=== PATIENT | female | born 1985 | race Caucasian/White ===

== ENCOUNTER 2023-06-13 10:03 | Outpatient (OUT) | payer OTHER, SELFPAY ==
--- NOTE | 2023-06-13 10:13 | US_ITS ---
The [address] [address] Patient Name: ANNAMARIE CARDONA MRN: [id number] date: 1985 Sex: F Assigned Patient Location: US Current Patient Location: US Accession/Order Number: [id number] Exam Date: 06/13/2023 10:13 Report Date: 06/13/2023 11:28 At the request of: ABBY CLIFTON Procedure: US pelvis w/ transvaginal EXAM: Pelvic ultrasound. HISTORY: . PELVIC PAIN . COMPARISON: None. TECHNIQUE: Transabdominal and transvaginal scanning was performed FINDINGS: Scanning of the pelvis demonstrates uterus to be anteverted and measures 7.3 x 3.3 x 4.5 cm. Endometrial complex measures 6 mm. Right ovary measures 2.3 x 1.4 x 1.5 cm. Color-flow is noted. Resistive indexes 0.6. Small follicles are noted. Left ovary measures 4.4 x 2 x 4 cm. Color-flow is noted. Resistive indexes 0.7. Within the left ovary is a 2.9 x 2.9 x 2.3 cm avascular complicated cystic lesion. No fluid is noted in the cul-de-sac. US/US pelvis w/ transvaginal IMPRESSION: 1. Normal-appearing uterus and endometrial complex. 2. Normal right ovary. 3. 2.9 x 2.3 cm avascular complicated cystic lesion in the left ovary. Would be most consistent with a hemorrhagic cyst. Less likely would be a inflammatory mass or neoplasm. Clinical correlation is suggested. You may was consider follow-up ultrasound in 8-12 weeks. If this is a hemorrhagic cyst, this should show decrease in size and/or resolution. Electronically authenticated by: FLY SALAMANCA Date: 06/13/2023 11:28
== END 2023-06-13 10:04 | disposition home or self-care (01) ==
PROVIDERS: PCP Family Medicine; Visit Provider Obstetrics & Gynecology
DX: R10.2 Pelvic and perineal pain (principal); N83.202 Unspecified ovarian cyst, left side
CPT/HCPCS: 76830; 76856

== ENCOUNTER 2023-07-22 19:33 | Outpatient (REF) | payer OTHER, SELFPAY ==
[2023-07-28 10:10] LABS: Age Gdln ACOG Testing Note (.); HPV Aptima Negative (Negative); IGP, Aptima HPV, rfx 16/18,45 Note (.)
== END 2023-07-22 19:34 | disposition home or self-care (01) ==
LOC: LAB 19:33
PROVIDERS: PCP Family Medicine; Visit Provider Obstetrics & Gynecology
DX: Z01.419 Encounter for gynecological examination (general) (routine) without abnormal findings (principal)
CPT/HCPCS: 87624; G0145

== ENCOUNTER 2023-08-22 09:57 | Outpatient (OUT) | payer OTHER, SELFPAY ==
--- NOTE | 2023-08-22 | US_ITS ---
The [address] [address] Patient Name: ANNAMARIE CARDONA MRN: [id number] date: 1985 Sex: F Assigned Patient Location: Current Patient Location: US Accession/Order Number: [id number] Exam Date: 08/22/2023 10:00 Report Date: 08/22/2023 12:36 At the request of: ABBY CLIFTON Procedure: US pelvis w/ transvaginal EXAM: Pelvic ultrasound HISTORY: . LEFT OVARIAN CYST N 83.202 . COMPARISON: 06/13/2023 TECHNIQUE: Transabdominal and transvaginal scanning was performed FINDINGS: The pelvis demonstrates uterus to be anteverted and measures 7 x 4 x 3.2 cm. Endometrial complex measures 5 mm. Right ovary measures 1.5 x 2 x 1.4 cm. Color-flow is noted. Resistive indexes 0.5. No masses are noted. Left ovary measures 4.2 x 2.7 x 2.2 cm. Color-flow is noted. Resistive indexes 0.3. Within the left ovary is a 2.5 x 1.5 cm avascular complex cystic area. No fluid is noted in the cul-de-sac. US/US pelvis w/ transvaginal IMPRESSION: 1. Normal-appearing anteverted uterus with a normal endometrial complex. 2. Normal right ovary. 3. Within the left ovary is a 2.5 x 1.5 cm avascular complex cystic structure. When compared to the previous exam the complex cystic lesion is smaller. On the previous exam this measured 2.9 x 2.3 cm. Electronically authenticated by: FLY SALAMANCA Date: 08/22/2023 12:36
== END 2023-08-22 09:58 | disposition home or self-care (01) ==
LOC: US 09:57
PROVIDERS: PCP Family Medicine; Visit Provider Obstetrics & Gynecology
DX: N83.202 Unspecified ovarian cyst, left side (principal)
CPT/HCPCS: 76830; 76856

== ENCOUNTER 2024-07-26 13:06 | Outpatient (REF) | payer OTHER, SELFPAY ==
--- OUTSIDE RECORDS SUMMARY | 2024-07-26 13:20 | XMS_ITS | CCD ---
Author Organization [facility] Care Team Providers Care Mold Dresser Name Role Phone DR ABBY VILLALOBOS Admitting Unavailable ETIENNE, DR MORA Attending Unavailable FATIMAH, DR LIZANDRO Mccloud Primary Care Unavailable ETIENNE, DR MORA Consulting Unavailable Lizandro Harrison Primary Care Unavailable Andrzej Barrera Admitting Unavailable Andrzej Barrera Attending Unavailable Abby Villalobos Referring Unavailable Lizandro Harrison DO Primary Care Provider BEATA FUNES Attending Unavailable LIZANDRO HARRISON Referring Unavailable LIZANDRO HARRISON Primary Care Unavailable BEATA FUNES Referring Unavailable LIZANDRO HARRISON Primary Care Unavailable Medications Current Medications Medication Drug Class(es) Dates Sig (Normalized) Sig (Original) [id number] 200 actuat albuterol 0.09 mg/actuat metered dose inhaler (4 sources) beta2-Adrenergic Agonist Start: 02-15-2024 Albuterol Sulfate Active 1 INH INHALATION Every 6 hours February 15, 2024 12:00am Start: 10-23-2023 albuterol (PRO VENTIL HFA;VENTOLIN HFA) 90 mcg/actuation inhaler Indications: Mild intermittent asthma, unspecified whether complicated Inhale 2 puffs in the morning and 2 puffs at noon and 2 puffs in the evening and 2 puffs before bedtime. As needed. 18 g 1 10/23/2023 Active Start: 07-02-2022 End: 10-23-2023 take 2 puff(s) by inhalation every six hours as needed for wheezing albuterol (PROVENTIL HFA;VENTOLIN HFA) 90 mcg/actuation inhaler Indications: Mild intermittent asthma without complication Inhale 2 puffs every 6 (six) hours as needed for wheezing. 18 g 11 07/02/2022 10/23/2023 Discontinued (Duplicate Listing) End: 10-23-2023 albuterol (PROVENTIL HFA;SHUN TOLIN HFA) 90 mcg/actuation inhaler Inhale 2 puffs in the morning and 2 puffs at noon and 2 puffs in the evening and 2 puffs before bedtime. As needed. 0 10/23/2023 Discontinued (Reorder) amoxicillin 875 mg / clavulanate 125 mg oral tablet (1 source) Penicillin-class Antibacterial Start: 02-15-2024 take 1 tablet by mouth twice daily Amoxicillin-Pot Clavulanate Active 1 TAB PO Twice daily 20 February 15, 2024 12:00am cetirizine hydrochloride 10 mg chewable tablet (1 source) Histamine-1 Receptor Antagonist cetirizine (ZyrTEC) 10 MG chewable tablet Chew 1 tablet (10 mg total) and swallow in the morning. 0 Active ibuprofen 800 mg oral tablet (1 source) Nonsteroidal Anti-inflammatory Drug Start: 05-26-2023 take 1 tablet by mouth every eight hours ibuprofen (MOTRIN) 800 mg tablet Take 1 tablet (800 mg total) by mouth every 8 (eight) hours. 0 05/26/2023 Active meclizine hydrochloride 25 mg oral tablet (1 source) Antiemetic Start: 10-10-2022 take 1 tablet by mouth three times daily as needed for dizziness meclizine (ANTIVERT) 25 mg tablet Take 1 tablet (25 mg total) by mouth 3 (three) times a day as needed for dizziness. 30 tablet 0 10/10/2022 Active omeprazole 20 mg delayed release oral capsule (3 sources) Proton Pump Inhibitor Start: 02-15-2024 take 20 mg by mouth once daily Omeprazole Active 20 MG PO Daily February 15, 2024 12:00am Start: 04-27-2023 End: 10-23-2023 take 1 capsule by mouth once daily before breakfast omeprazole (PriLOSEC) 40 mg capsule Take 1 capsule (40 mg total) by mouth every morning before breakfast. 90 capsule 3 10/23/2023 Active predniSONE 20 mg oral tablet (1 source) Start: 10-23-2023 End: 10-30-2023 take 1 tablet by mouth in the morning predniSONE (DELTASONE) 20 mg tablet Take 1 tablet (20 mg total) by mouth in the morning for 7 days. 7 tablet 0 10/23/2023 10/30/2023 Active sertraline 50 mg oral tablet (3 sources) Serotonin Reuptake Inhibitor Start: 02-15-2024 take 50 mg by mouth once daily Sertraline Active 50 MG PO Daily February 15, 2024 12:00am Start: 09-28-2023 End: 10-23-2023 take 1 tablet by mouth in the morning sertraline (ZOLOFT) 50 mg tablet Take 1 tablet (50 mg total) by mouth in the morning. 30 tablet 11 10/23/2023 Active tiZANidine 4 mg oral tablet (1 source) Central alpha-2 Adrenergic Agonist Start: 10-23-2023 End: 11-02-2023 take 1 tablet by mouth every six hours as needed tiZANidine (ZANAFLEX) 4 mg tablet Take 1 tablet (4 mg total) by mouth every 6 (six) hours as needed for muscle spasms for up to 10 days. 10 tablet 0 10/23/2023 11/02/2023 Active Completed/Discontinued Medications Medication Drug Class(es) Dates Sig (Normalized) Sig (Original) Budesonide (2 sources) Corticosteroid Start: 07-26-2020 End: 01-28-2021 take 180 ug by inhalation twice daily Budesonide (Pulmicort Flexhaler) 180 mcg/actuation aerosol powdr breath activated Discontinued 180 MCG INHALATION Twice daily July 26, 2020 12:00am January 28, 2021 10:34am diphenhydrAMINE hydrochloride 25 mg oral tablet (2 sources) Histamine-1 Receptor Antagonist Start: 07-26-2020 End: 11-01-2020 take 25 mg by mouth once daily at bedtime Diphenhydramine Hcl Discontinued 25 MG PO Daily at bedtime July 26, 2020 12:00am November 01, 2020 9:51am ferrous sulfate 325 mg oral tablet (2 sources) Start: 08-07-2020 End: 08-02-2021 take 1 tablet by mouth once daily Ferrous Sulfate (Iron (Ferrous Sulfate)) 325 mg (65 mg iron) Tablet Discontinued 325 MG PO Daily August 07, 2020 12:00am August 02, 2021 9:35am 3 ml insulin isophane, human 100 unt/ml pen injector (4 sources) Start: 07-26-2020 End: 01-28-2021 Insulin Nph Isoph U-100 Human (Humulin N Nph Insulin Kwikpen) 100 unit/mL (3 mL) insulin pen Discontinued 11 UNIT SUBCUT Every morning July 26, 2020 12:00am January 28, 2021 10:33am Start: 07-26-2020 End: 01-28-2021 inject 7 [IU] by subcutaneous injection once daily at bedtime Insulin Nph Isoph U-100 Human (Humulin N Nph Insulin Kwikpen) 100 unit/mL (3 mL) insulin pen Discontinued 7 UNIT SUBCUT Daily at bedtime July 26, 2020 12:00am January 28, 2021 10:33am insulin, regular, human 100 unt/ml injectable solution (2 sources) Insulin Start: 07-26-2020 End: 01-28-2021 inject 7 [IU] by subcutaneous injection twice daily Insulin Regular Human (Humulin R Regular U-100 Insuln) 100 unit/mL solution Discontinued 7 UNIT SUBCUT Twice daily July 26, 2020 12:00am January 28, 2021 10:33am Magnesium (2 sources) Start: 11-01-2020 End: 01-28-2021 Magnesium Discontinued 420 TAB PO Daily November 01, 2020 1:00am January 28, 2021 10:33am 420 daily for headaches [id number] Fumarate-Fa () 28-800 mg-mcg Tablet (2 sources) Start: 07-26-2020 End: 01-28-2021 take 1 tablet by mouth once daily [id number]-[id number] Fumarate-Fa () 28-800 mg-mcg Tablet Discontinued 1 TAB PO Daily July 26, 2020 12:00am January 28, 2021 10:33am Problems Active Problems Problem Classification Problem Date Documented Date Episodic/Chronic Asthma (3 sources) Mild intermittent asthma; Translations: [Mild intermittent asthma, uncomplicated] Onset: 07-02-2022 10-23-2023 Chronic Deficiency and other anemia (3 sources) Anemia; Translations: [Anemia, unspecified] Onset: 10-23-2023 11-01-2020 Episodic Diseases of white blood cells (5 sources) Leukocytosis; Translations: [Elevated white blood cell count, unspecified] Onset: 11-04-2020 08-02-2021 Chronic Esophageal disorders (1 source) Gastro-esophageal reflux disease with esophagitis; Translations: [Gastroesophageal reflux disease with esophagitis without hemorrhage] 10-23-2023 Chronic Esophageal disorders (1 source) Esophageal disorders; Translations: [Gastro-esophageal reflux disease with esophagitis, without bleeding] Onset: 10-23-2023 Immunizations and screening for infectious disease (1 source) Encounter for screening for human papillomavirus (HPV); Translations: [ENC SCREENING HUMAN PAPILLOMAVIRUS] Onset: 07-12-2022 Episodic Mood disorders (2 sources) Dysthymic disorder; Translations: [Dysthymic disorder] Onset: 08-11-2022 08-11-2022 Chronic Neoplasms of unspecified nature or uncertain behavior (3 sources) Thrombocytosis; Translations: [Thrombocythemia] Onset: 08-02-2021 08-02-2021 Episodic Other acquired deformities (1 source) Acquired unequal leg length; Translations: [Unequal limb length (acquired), unspecified site] 10-23-2023 Episodic Other acquired deformities (1 source) Unequal limb length (acquired), unspecified site; Translations: [Unequal limb length (acquired), unspecified site] Onset: 10-23-2023 Episodic Other nervous system disorders (1 source) Carpal tunnel syndrome; Translations: [Carpal tunnel syndrome, unspecified upper limb] Onset: 07-02-2022 07-02-2022 Chronic Other nutritional; endocrine; and metabolic disorders (1 source) Morbid obesity; Translations: [Morbid (severe) obesity due to excess calories] 10-23-2023 Chronic Other nutritional; endocrine; and metabolic disorders (1 source) Morbid (severe) obesity due to excess calories; Translations: [Morbid (severe) obesity due to excess calories] Onset: 10-23-2023 Chronic Other screening for suspected conditions (not mental disorders or infectious disease) (4 sources) Encounter for screening for malignant neoplasm of cervix; Translations: [ENC SCREENING MALIG NEOPLASM CERV] Onset: 07-10-2022 Episodic Other upper respiratory disease (1 source) Allergic rhinitis; Translations: [Allergic rhinitis, unspecified] Onset: 07-02-2022 07-02-2022 Chronic Other upper respiratory infections (1 source) Acute pharyngitis, unspecified; Translations: [Acute pharyngitis] 02-15-2024 Episodic Ovarian cyst (1 source) Cyst of left ovary; Translations: [Unspecified ovarian cyst, left side] Onset: 08-22-2023 10-23-2023 Episodic Spondylosis; intervertebral disc disorders; other back problems (2 sources) Backache; Translations: [Dorsalgia, unspecified] Onset: 10-23-2023 10-23-2023 Episodic Unclassified (1 source) Other thrombocytosis; Translations: [Other thrombocytosis] Onset: 08-02-2021 Unclassified (1 source) well person Onset: 10-23-2023 Past or Other Problems Problem Classification Problem Date Documented Da te Episodic/Chronic Abdominal pain (1 source) Pain in pelvis; Translations: [Pelvic and perineal pain] Onset: 06-13-2023 10-23-2023 Episodic Conditions associated with dizziness or vertigo (2 sources) Benign paroxysmal positional vertigo; Translations: [Benign paroxysmal vertigo, unspecified ear] Onset: 02-09-2019 07-02-2022 Episodic Deficiency and other anemia (1 source) Iron deficiency anemia; Translations: [Iron deficiency anemia, unspecified] Onset: 11-04-2020 07-02-2022 Episodic Diabetes or abnormal glucose tolerance complicating ; childbirth; or the puerperium (1 source) History of gestational diabetes mellitus; Translations: [Personal history of gestational diabetes] Onset: 07-02-2022 07-02-2022 Episodic Gastritis and duodenitis (1 source) Gastritis; Translations: [Gastritis, unspecified, without bleeding] Onset: 10-12-2005 02-23-2023 Episodic Other disorders of stomach and duodenum (1 source) Intestinal metaplasia of gastric mucosa; Translations: [Intestinal metaplasia of gastric mucosa] Onset: 02-23-2023 02-23-2023 Episodic Superficial injury; contusion (1 source) Foreign body in forearm; Translations: [Superficial foreign body of unspecified forearm, initial encounter] Onset: 07-02-2022 07-02-2022 Episodic Unclassified (1 source) Onset: 10-23-2023 10-23-2023 Results Test Name Value Interpretation Reference Range Facility No Panel InformationOrdered By: Jennie Mars on 02-15-2024 Quick Strep (POC) [facility] COMPREHENSIVE METABOLIC PANE [place] 10-23-2023 Albumin [Mass/Vol] 4.0 g/dL Normal 3.2-5.3 [facility] Comment on above: Performed By: #### C , 75984-6 #### [facility] ([id number]) [address], [address] [place] [address] ALP [Catalytic activity/Vol] 87 U/L Normal 39-130 [facility] Comment on above: Performed By: #### C WILLIE, 12960-0 #### [facility] ([id number]) [address] [place] [address] ALT [Catalytic activity/Vol] 16 U/L Normal 0-31 [facility] Comment on above: Performed By: #### Ana TAPIA, 69477-8 #### [facility] ([id number]) [address], [address] [place] [address] Anion gap [Moles/Vol] 5 mmol/L Normal 5-15 [facility] Comment on above: Performed By: #### Ana TAPIA, 92538-4 #### [facility] ([id number]) [address], [address] [place] [address] AST [Catalytic activity/Vol] 18 U/L Normal 0-41 [facility] Comment on above: Performed By: #### Ana TAPIA, 37779-4 #### [facility] ([id number]) [address], [address] [place] [address] Bilirubin [Mass/Vol] 0.2 mg/dL Low 0.3-1.2 [facility] Comment on above: Performed By: #### Ana TAPIA, 27643-4 #### [facility] ([id number]) [address], [address] [place] [address] Calcium [Mass/Vol] 9.6 mg/dL Normal 8.5-10.5 [facility] Comment on above: Performed By: #### Ana TAPIA, 93336-5 #### [facility] ([id number]) [address], [address] [place] [address] Chloride [Moles/Vol] 100 mmol/L Normal 98-109 [facility] Comment on above: Performed By: #### Ana TAPIA, 59844-1 #### [facility] ([id number]) [address], [address] [place] [address] CO2 [Moles/Vol] 31 mmol/L Normal 22-32 [facility] Comment on above: Performed By: #### Ana TAPIA, 64421-5 #### [facility] ([id number]) [address], [facility] [address] [place] [address] Creatinine [Mass/Vol] 0.63 mg/dL Normal 0.40-1.00 [facility] Comment on above: Result Comment: METH OD TRACEABLE TO IDMS STANDARD Performed By: #### Ana TAPIA, 64822-8 #### [facility] ([id number]) [address], [facility] [address] [place] [address] eGFR (CKD-EPI) NON-RACE DEPENDENT >90 Normal >59 [facility] Comment on above: Result Comment: Reported eGFR is based on the CKD-EPI 2020 equation that does not use a race coefficient. Performed By: #### Ana TAPIA, 86172-6 #### [facility] ([id number]) [address], [address] [place] [address] Glucose [Mass/Vol] 86 mg/dL Normal 65-99 [facility] Comment on above: Performed By: #### Ana TAPIA, 49484-4 #### [facility] ([id number]) [address] [address] [place] [address] Potassium [Moles/Vol] 4.2 mmol/L Normal 3.5-5.0 [facility] Comment on above: Performed By: #### Ana TAPIA, 31957-5 #### [facility] ([id number]) [address] [address] [place] [address] Protein [Mass/Vol] 7.9 g/dL Normal 6.0-8.0 [facility] Comment on above: Performed By: #### Ana TAPIA, 40811-8 #### [facility] ([id number]) [address], [address] [place] [address] Sodium [Moles/Vol] 136 mmol/L Normal 134-146 [facility] Comment on above: Performed By: #### Ana TAPIA, 73332-3 #### [facility] ([id number]) [address], [address] [place] [address] Urea nitrogen [Mass/Vol] 11 mg/dL Normal 5-23 [facility] Comment on above: Performed By: #### Ana TAPIA, 37971-2 #### [facility] ([id number]) [address], [address] [place] [address] Lipid 1996 panelon 4 Cholesterol [Mass/Vol] 247 mg/dL High 150-200 [facility] Comment on above: Performed By: #### Ana TAPIA, 29479-9 #### [facility] ([id number]) [address], [address] [place] [address] Cholesterol in HDL [Mass/Vol] 42 mg/dL Normal >39 [facility] Comment on above: Result Comment: HDL <40 mg/dL - High Risk HDL > or = 40mg/dL- Desirable HDL >60 mg/dL - Negative Risk Performed By: #### Ana TAPIA, 65536-4 #### [facility] ([id number]) [address], [address] [place] [address] Cholesterol in LDL [Mass/Vol] 162 mg/dL High <130 [facility] Comment on above: Result Comment: LDL <100 mg/dL - Desirable LDL >160 mg/dL - High Risk Performed By: #### C WILLIE, 88582-7 #### [facility] ([id number]) [address], [address] [place] [address] Cholesterol in VLDL [Mass/Vol] 43 mg/dL High 0-30 [facility] Comment on above: Performed By: #### Ana TAPIA, 99451-3 #### [facility] ([id number]) [address], [address] [place] [address] CHOLESTEROL:HDL 5.9 High 1.0-5.0 [facility] Comment on above: Performed By: #### Ana TAPIA, 55575-5 #### [facility] ([id number]) [address], [address] [place] [address] Triglyceride [Mass/Vol] 213 mg/dL High 27-150 [facility] Comment on above: Performed By: #### Ana TAPIA, 62998-1 #### [facility] ([id number]) [address], [address] [place] [address] PAP ACOG PANEL 2: 30 to 65on 07-21-2022 . . Normal [facility] Comment on above: Result Comment: Perf ormed at: WB Performed By: #### 4 [id number] #### [facility] [address] [place] [address] Dr. Haider Britt Age Gdln ACOG Testing 30-65 Normal [facility] Comment on above: Performed By: #### 4 [id number] #### [facility] [address] [address] [address] Haider Britt DIAGNOSIS: Comment Abnormal [facility] Comment on above: Result Comment: EPIT HELIAL CELL ABNORMALITY. ATYPICAL SQUAMOUS CELLS OF UNDETERMINED SIGNIFICANCE (ASC-US). Performed at: WB Performed By: #### 4 [id number] #### [facility] [address] [place] [address] Dr. Haider Birtt Electronically signed by: Comment Normal [facility] Comment on above: Result Comment: Ynes Merida MD, Pathologist Performed at: WB Performed By: #### 4 [id number] #### [facility] [address] [place] [address] Dr. Haider Britt HPV Aptima Negative Normal Negative [facility] Comment on above: Result Comment: This nucleic acid amplification test detects fourteen high-risk HPV types (16,18,31,33,35,39,45,51,52,56,58,59,66,68) without differentiation. Performed at: =G Performed By: #### 4 [id number] #### [facility] [address] [place] [address] Dr. Haider Britt Methodology: Comment Normal [facility] Comment on above: Result Comment: This liquid based ThinPrep(R) pap test was screened with the use of an image guided system. Performed at: WB Performed By: #### 4 [id number] #### [facility] [address] [place] [address] Dr. Haider Britt Note: Comment Normal [facility] Comment on above: Result Comment: The Pap smear is a screening test designed to aid in the detection of premalignant and malignant conditions of the uterine cervix. It is not a diagnostic procedure and should not be used as the sole means of detecting cervical cancer. Both false-positive and false-negative reports do occur. . Performed at: WB Performed By: #### [id number] #### [facility] [address] [place] [address] Dr. Haider Britt Pathologist Provided ICD10 Comment Normal [facility] Comment on above: Result Comment: [id number] Performed at: WB Performed By: #### 4 [id number] #### [facility] [address] [place] [address] Dr. Haider Britt Performed by: Comment Normal [facility] Comment on above: Result Comment: Foina Leal, Group Underwriter (ASCP) Performed at: WB Performed By: #### 4 [id number] #### [facility] [address] [place] [address] Dr. Haider Britt Specimen adequacy: Comment Normal [facility] Comment on above: Result Comment: Sati sfactory for evaluation. Endocervical and/or squamous metaplastic cells (endocervical component) are present. Performed at: WB Performed By: #### 4 [id number] #### [facility] [address] [place], [place] [address] Dr. Haider Britt Provider Letteron 08-20-2020 Provider Letter August 20, 2020 ALLYSON CARDONA [address] [place] [address] ALLYSON CARDONA 1985 Dear Allyson , You missed your scheduled appointment on:08-20-2020 and the purpose of this letter is to inform you of our *No Show Policy*. Our appointment slots fill rapidly and when we have a no show appointment that time is lost. We could have used that time slot to care for a patient who needed to see one of our providers. Therefore, we ask that you call 24 hours in advance to cancel your appointment. After your second no show within a twelve (12) month period, you will be assessed a $30 charge. This policy is in place so that we can meet the needs of all of our patients and we do appreciate your understanding. Sincerely, [facility]/Dr Jenny Medeiros [facility] Vital Signs Date Time Vital Sign Value Performing Clinician Facility 02-15-2024 18:07-0400 Body height 152.4 cm [facility] 02-15-2024 18:07-0400 Body mass index (BMI) [Ratio] 41 kg/m2 [facility] 02-15-2024 18:07-0400 Body temperature 98 [degF] [facility] 02-15-2024 18:07-0400 Body weight 95.25 kg [facility] 02-15-2024 18:07-0400 Diastolic blood pressure 96 mm[Hg] [facility] 02-15-2024 18:07-0400 Heart rate 85 /min [facility] 02-15-2024 18:07-0400 Respiratory rate 18 /min [facility] 02-15-2024 18:07-0400 SaO2% (BldA) [Mass fraction] 98 % [facility] 02-15-2024 18:07-0400 Systolic blood pressure 148 mm[Hg] [facility] 10-23-2023 08:35-0500 Body height 147.3 cm Beata Funes APRN-[employer]ENCE [employer]IVER Work Phone: [employer] 10-23-2023 08:35-0500 Body mass index (BMI) [Ratio] 42.85 kg/m2 Beata Funes APRN-[employer]IVER Work Phone: [employer] 10-23-2023 08:35-0500 Body temperature 97.39 [degF] Beata Funes APRN-[employer]IVER [facility] 10-23-2023 08:35-0500 Body weight 92.99 kg Beata Funes APRN-[employer] Work Phone: [employer] 10-23-2023 08:35-0500 Diastolic blood pressure 60 mm[Hg] Beata Funes APRN-[employer]IVER Work Phone: [employer] 10-23-2023 08:35-0500 Heart rate 98 /min Beata Funes APRN-[employer] Work Phone: [employer] 10-23-2023 08:35-0500 Respiratory rate 16 /min Beata Funes APRN-[employer] Work Phone: [employer] 10-23-2023 08:35-0500 SaO2% (BldA) [Mass fraction] 94 % Beata Funes APRN-[employer]IVER Work Phone: [employer] 10-23-2023 08:35-0500 Systolic blood pressure 110 mm[Hg] Beata Funes APRN-[employer] [facility] Phone[facility] En[facility] Encounter Date Encounter Type Care Provider Facility Start: 02-15-2024 End: 02-15-2024 ambulatory [facility] Work Phone: Start: 02-15-2024 End: 02-15-2024 Patient encounter procedure [facility] Work Phone: Start: 10-23-2023 End: 10-24-2023 ambulatory [facility] Start: 10-23-2023 Encounter for genera l adult medical examination without abnormal findings [facility] Start: 10-23-2023 End: 10-23-2023 ambulatory [facility] Start: 10-23-2023 Encounter for genera l adult medical examination without abnormal findings [facility] Start: 10-23-2023 End: 10-23-2023 Patient encounter procedure Beata Funes [employer]UTIONS MANAGER-[employer] Work Phone: [facility] [employer] Work Phone: Start: 10-23-2023 End: 10-23-2023 Periodic preventive med est patient 18-39 yrs Beata Funes SOLUTIONS MANAGER-[employer] Work Phone: [facility] Comment on above: Annual physical exam (Primary Dx); Morbid obesity due to excess calories (CMS-HCC); Mild intermittent asthma, unspecified whether complicated; Gastroesophageal reflux disease with esophagitis without hemorrhage; Acute back pain less than 4 weeks duration; Acquired unequal leg length Start: 07-10-2022 End: 07-10-[address] ABBY VILLALOBOS Facility: Start: 08-02-2021 End: 08-03-2021 ambulatory Lizandro Harrison Facility:[facility] Procedures Date Procedure Procedure Detail Performing Clinician Start: 02-15-2024 Quick Strep (POC) Start: 07-10-2022 Microscopic observat ion [Identifier] in Cervix by Cyto stain Beata Funes SOLUTIONS MANAGER-FENCE POST DRIVER Work Phone: Plan of Treatment Date Care Activity Detail Author Start: 09-10-2030 DTaP,Tdap and Td Vaccines (3 - Td or Tdap) DTaP,Tdap and Td Vaccines (3 - Td or Tdap) [facility] [employer] Start: 07-10-2025 Screening for malign ant neoplasm of cervix Pap Smear [facility] Start: 10-23-2024 Adult BMI Screening Adult BMI Screen ing [facility] Start: 04-23-2024 Tobacco Screening Tobacco Screening [facility] Start: 2005 Adult BMI Follow Up Plan Adult BMI F ollow Up Plan [facility] [employer] Start: 1999 Depression Screening Depression Scre ening [facility] End: 10-23-2024 Comprehensive metabolic 2000 panel - Serum or Plasma Comprehensive metabolic panel Lab Routine Annual physical exam 1 Occurrences starting 10/23/2023 until 10/23/2024 [facility] Work Phone: Comment on above: 1 Occurrences starti ng 10/23/2023 until 10/23/2024 Comprehensive metabo lic 2000 panel - Serum or Plasma Comprehensive metabolic panel Lab Routine Annual physical exam 10/23/2023 7:03 PM EST [facility] [employer] Lipid 1996 panel - S raysa or Plasma Lipid profile Lab Routine Annual physical exam 10/23[facility]2023 7[facility]03 PM [facility] End: 10-23-2024 Lipid panel Lipid panel Lab Routine Annual physical exam 1 Occurrences starting 10/23/2023 until 10/23/2024 [facility] [employer] [facility] Comment on above: 1 Occurrences starti ng 10/23/2023 until 10/23/2024 Immunizations Immunization Date Immunization Notes Care Provider Genaro ayala 09-10-2020 tetanus toxoid, redu aren diphtheria toxoid, and acellular pertussis vaccine, adsorbed Beata Funes SOLUTIONS MANAGER-FENCE POST DRIVER Work Phone: [facility] [employer] [facility] 01-22-2009 tetanus toxoid, redu aren diphtheria toxoid, and acellular pertussis vaccine, adsorbed Beata Funes SOLUTIONS MANAGER-FENCE POST DRIVER Work Phone: [facility] Payers Date Payer Category Payer Private Health Insurance [id number] 2021 Private Health Insurance [id number] 2020 Self-pay [id number] 1987 Unknown [id number] 1987 Unknown [id number] 1987 Unknown [id number] 1959 Private Health Insurance [id number] 1959 Unknown [id number] Unknown [employer] BC/BS [id number] Unknown [id number] Unknown [id number] Social History Date Type Detail [facility] Work Phone: Start: 1985 Sex Assigned At Female F [facility] Start: 08-01-2022 End: 02-15-2024 Tobacco smoking status NHIS Never smoked tobacco [facility] Start: 08-01-2022 Tobacco use and exposure Smoke less tobacco non-user [facility] Start: 10-23-2023 Alcohol intake Current drinke r of alcohol (finding) [facility] Start: 11-22-2020 End: 10-23-2023 History of Social function [facility] Start: 11-22-2020 End: 10-23-2023 Tobacco use panel [facility] Housing Instability Unknown [facility] Start: 11-18-2019 Alcohol Comment rare [facility] Start: 1985 Sex Assigned At Not on file P [facility] History of Present illness Narrative 10-23-2023 Beata Funes, SOLUTIONS MANAGER-FENCE POST DRIVER - 10/23/2023 8:30 AM EST Note Date & Type Note Facility 10-23-2023 History of Present illness Narrative Subjective Patient ID: Allyson Cardona is a 38 y.o. female. Here for her annual exam Last Thursday she lifted a shampoo er and since has some sharp left lower back pain It is deep in the buttock - taking a deep breath or movement aggravate it Staying still helps it - interrupts sleep Her gait has altered it Ibuprofen 800 and heat hasn't helped - muscle relaxer provided some relief for a short time but it didn't last It stays in that spot and goes from sharp to pulsating Doesn't do anything for regular exercise Periods have been ok Mood has been good with her current dose of sertraline Her asthma has been stable, she hasn't used her rescue inhaler in months and uses it rarely The following portions of the patient's history were reviewed and updated as appropriate: allergies, current medications, past family history, past medical history, past social history, past surgical history, problem list, and medication reconciliation was completed including current medication and post discharge medication. Review of Systems Constitutional: Negative. HENT: Negative. Eyes: Negative. Respiratory: Negative. Cardiovascular: Negative. Gastrointestinal: Negative. Endocrine: Negative. Genitourinary: Negative. Musculoskeletal: Positive for back pain and gait problem. Skin: Negative. Allergic/Immunologic: Negative. Hematological: Negative. Psychiatric/Behavioral: Negative. Objective Physical Exam Vitals and nursing note reviewed. Constitutional: Appearance: She is obese. HENT: Head: Normocephalic. Eyes: Conjunctiva/sclera: Conjunctivae normal. Cardiovascular: Rate and Rhythm: Normal rate and regular rhythm. Heart sounds: Normal heart sounds. No murmur heard. Pulmonary: Effort: Pulmonary effort is normal. Breath sounds: Normal breath sounds. Musculoskeletal: General: Tenderness present. Cervical back: Neck supple. Right lower leg: No edema. Left lower leg: No edema. Comments: Limited range of motion at 60 degrees flexion and unable to fully extend She has assymerty when standing erect but this corrects when she flexes Her right hip is higher than her left She has tenderness of the right SI Lymphadenopathy: Cervical: No cervical adenopathy. Skin: General: Skin is warm and dry. Neurological: Mental Status: She is alert and oriented to person, place, and time. Psychiatric: Mood and Affect: Mood normal. Behavior: Behavior normal. Thought Content: Thought content normal. Judgment: Judgment normal. Assessment/Plan Allyson was seen today for well person. Diagnoses and all orders for this visit: Annual physical exam - Comprehensive metabolic panel; Future - Lipid panel; Future Morbid obesity due to excess calories ([facility]-HCC) Mild intermittent asthma, unspecified whether complicated - albuterol (PROVENTIL HFA;VENTOLIN HFA) 90 mcg/actuation inhaler; Inhale 2 puffs in the morning and 2 puffs at noon and 2 puffs in the evening and 2 puffs before bedtime. As needed. Gastroesophageal reflux disease with esophagitis without hemorrhage Acute back pain less than 4 weeks duration Acquired unequal leg length - Ambulatory referral to Podiatry ([facility]); Future Other orders - sertraline (ZOLOFT) 50 mg tablet; Take 1 tablet (50 mg total) by mouth in the morning. - omeprazole (PriLOSEC) 40 mg capsule; Take 1 capsule (40 mg total) by mouth every morning before breakfast. - predniSONE (DELTASONE) 20 mg tablet; Take 1 tablet (20 mg total) by mouth in the morning for 7 days. - tiZANidine (ZANAFLEX) 4 mg tablet; Take 1 tablet (4 mg total) by mouth every 6 (six) hours as needed for muscle spasms for up to 10 days. Here for her annual exam She is doing well on her zoloft and no changes made with that She is currently having some acute back pain but she also has some chronic back issues, looking at her back it appears she has unequal leg length and this may be why she has repeated back issues, will try to get her a foot ligt and see if this is helpful and in the meantime treat her acute pain She has chronic gerd and this is controlled with omeprazole Her asthma also is well controlled with rare use of rescue inhaler Await screening labs, these are not fasting Patient noted to have elevated BMI and the following intervention(s) were applied: encouragement to exercise. PRADEEP Merritt 10/23/23 1201 documented in this encounter [facility] Evaluation note Note Date & Type Note Facility Evaluation note No assessment information availa [facility] Work Phone: Evaluation note Note Date & Type Note Facility Evaluation note Diagnosis Annual physical exam- Primary Routine general medical examination at a health care facility Morbid obesity due to excess calories ([facility]-HCC) Mild intermittent asthma, unspecified whether complicated Gastroesophageal reflux disease with esophagitis without hemorrhage Acute back pain less than 4 weeks duration Acquired unequal leg length Unequal leg length (acquired) documented in this encounter [facility] Evaluation note Note Date & Type Note Facility Evaluation note Diagnosis Onset Date Sore throat noneactive [facility] Work Phone: Instructions Note Date & Type Note Facility Instructions Not on filedocumented in this en counter [facility] Reason for referral (narrative) Consultation (Routine) - Pending Review Note Date & Type Note Facility Reason for referral (narrati ve) Specialty Diagnoses / Procedures Referred By Contmary t Referred To Contact Podiatry Diagnoses Acquired unequal leg length Beata Funes APRN-FNP [address] [place] [address] Chin Bryant, DPM [address] [place] [address] Referral ID Status Reason Start Date Expiration Date Visits Requested Visits Authorized [id number] Pending Review Specialty Services Required 10/23/2023 10/22/2024 1 1 [facility] [employer] Summary Purpose Family History Relationship Condition Age at Onset Recorded Date/T lilliana grandparent Diabetes mellitus Unknown grandparent Malignant neoplasm of bone Unknown grandparent Hodgkin lymphoma Unknown grandparent Psoriasis Unknown Advance Directives Advance Directive Response Recorded Date/ Time Advance Directives No July 23, 2020 3:33pm Chief Complaint and Reason for Visit Chief Complaint sinus pressure, sore throat, headache Reason for Visit Sore throat Additional Source Comments INFORMATION SOURCE (unrecogn ized section and content) DATE CREATED AUTHOR [facility]21/2020 [facility] DATE CREATED AUTHOR AUTHOR'S ORGANIZ ATION 07/21/2022 [facility] DATE CREATED AUTHOR AUTHOR'S ORGANIZ ATION 06/13/2023 [facility] DATE CREATED AUTHOR AUTHOR'S ORGANIZ ATION 10/25/2023 [facility] DATE CREATED AUTHOR AUTHOR'S ORGANIZ ATION 10/25/2023 [facility] Goals (unrecognized section and content) Goals may be documented in a n alternate sectionNot on filedocumented as of this encounterGoals may be documented in an alternate section Reason for Visit (unrecogniz ed section and content) Reason Comments well person Care Teams (unrecognized sec tion and content) Mold Dresser Relationship Specialty Start Date End Date Lizandro Harrison DO [address] [place] [address] PCP - General Family Medicine 02/10/17 Team Status: Active Member Role Status Dates Lizandro Harrison DO Primary Care Provider Active Team Status: Inactive Member Role Status Dates Lizandro Harrison DO Primary Care Provider Active Start: February 15, 2024 End: February 15, 2024 Jennie Mars APRN Attending Provider Active S tart: February 15, 2024 End: February 15, 2024 FOR RECORDS PERTAINING TO PATIENTS WHO ARE OR HAVE BEEN ENROLLED IN A CHEMICAL DEPENDENCY/SUBSTANCEABUSE PROGRAM, SOME INFORMATION MAY BE OMITTED. This clinical summary was aggregated from multiple sources. Caution should be exercised in using it in the provision of clinical care. This summary normalizes information from multiple sources, and as a consequence, information in this document may materially change the coding, format and clinical context of patient data. In addition, data may be omitted in some cases. CLINICAL DECISIONS SHOULD BE BASED ON THE PRIMARY CLINICAL RECORDS. [facility]. provides no warranty or guarantee of the accuracy or completeness of information in this document.
[2024-07-29 12:10] LABS: Age Gdln ACOG Testing Note (.); HPV Aptima Negative (Negative); IGP, Aptima HPV, rfx 16/18,45 Note (.)
== END 2024-07-26 13:07 | disposition home or self-care (01) ==
LOC: LAB 13:06
PROVIDERS: PCP Family Medicine; Visit Provider Obstetrics & Gynecology
DX: Z01.419 Encounter for gynecological examination (general) (routine) without abnormal findings (principal)
CPT/HCPCS: 87624; 88175

== ENCOUNTER 2025-07-31 12:56 | Outpatient (REF) | payer OTHER, SELFPAY ==
--- OUTSIDE RECORDS SUMMARY | 2025-07-31 09:00 | XMS_ITS | Encounter Summary ---
Author Organization [facility] Address [address] [place] [address] Care Team Providers Care Machinery Repair Maintenance Supervisor Name Role Phone Lizandro Harrison MD Primary Care Provider [phone] Reason for Visit * Reason Comments Well Women Visit Encounter Details Date Type Department Care Team ([facility] Contact Info) Description 07/31/2025 9:00 AM EDT Office Visit [facility] [address] [place] [address] Graham Villalobos DO [address] [place], [id number] Well woman exam with routine gynecological exam; Weight loss counseling, encounter for; Insulin resistance Social History Tobacco Use Types Packs/Day Years Used Date Smoking Tobacco: Never Smokeless Tobacco: Never Alcohol Use Standard Drinks/Week Comments Not Currently 1 (1 standard drink = 0.6 oz pur e alcohol) Comments Unknown Sex and Gender Information Value Date Recorded Sex Assigned at Not on file Legal Sex Female 11:06 PM EDT Gender Identity Not on file Sexual Orientation Not on file documented as of this encounter Last Filed Vital Signs Vital Sign Reading Time Taken Comments Blood Pressure 120/82 07/31/2025 8:59 AM EDT Pulse - - Temperature - - Respiratory Rate - - Oxygen Saturation - - Inhaled Oxygen Concentration - - Weight 93 kg (205 lb 1.9 oz) 07/31/2025 8:59 AM EDT Height - - Body Mass Index 42.87 12/09/2023 9:02 AM EST documented in this encounter Progress Notes * Tracy Ang LPN - 07/31/2025 9:00 AM EDT Reason for Appointment: Patient ID: Iveth Lanier is a 40 y.o. female who presents for Well Women Visit Patient presents today for Annual Exam. MEDICATIONS Current Outpatient Medications Medication Instructions albuterol HFA 90 mcg/act inhaler 2 puffs, Every 6 hours PRN cetirizine (ZYRTEC) 10 mg, Daily RT ibuprofen 800 mg, Every 8 hours meclizine (ANTIVERT) 25 mg, 3 times daily PRN metFORMIN XR (GLUCOPHAGE-XR) 500 mg, Oral, Daily with evening meal, Do not crush, chew, or split. 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 HISTORY PAST MEDICAL HISTORY SOCIAL HISTORY Past Medical History: Diagnosis Date Asthma during (HCC) Headache 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 termite control representative use of steroids Social History Tobacco Use Smoking status: Never Smokeless tobacco: Never Substance Use Topics Alcohol use: Not Currently Alcohol/week: 1.0 standard drink of alcohol Types: 1 Glasses of wine per week Drug use: Never FAMILY HISTORY Family History Problem Relation Name Age of Onset Asthma Father Wyatt Diabetes Maternal Grandmother Nataliia Diabetes Paternal Grandmother Pat SURGICAL HISTORY Past Surgical History: Procedure Laterality Date APPENDECTOMY BOTOX INJECTION CARPAL TUNNEL RELEASE Bilateral SECTION, LOW TRANSVERSE EGD 04/2023 PAP SMEAR 06/18/2021 normal REVIEW OF SYSTEMS Review of Systems: Review of Systems Constitutional: Negative. HENT: Negative. Eyes: Negative. Respiratory: Negative. Cardiovascular: Negative. Gastrointestinal: Negative. Genitourinary: Negative. Musculoskeletal: Negative. Skin: Negative. Neurological: Negative. All other systems reviewed and are negative. Hematological: Negative. Endocrine: Negative. Allergic/Immunologic: Negative. OBJECTIVE Objective: Physical Exam Constitutional: Appearance: Normal appearance. She is well-developed. Genitourinary: Vulva normal. Breasts: Breasts are soft. Right: Normal. Left: Normal. Cardiovascular: Rate and Rhythm: Normal rate and regular rhythm. Pulmonary: Effort: Pulmonary effort is normal. Breath sounds: Normal breath sounds. Abdominal: General: Bowel sounds are normal. There is no distension. Palpations: Abdomen is soft. Tenderness: There is no abdominal tenderness. There is no guarding or rebound. Musculoskeletal: General: No swelling. Normal range of motion. Right lower leg: No edema. Left lower leg: No edema. Neurological: Mental Status: She is alert and oriented to person, place, and time. Skin: General: Skin is warm and dry. Psychiatric: Mood and Affect: Mood normal. Behavior: Behavior normal. Vitals and nursing note reviewed. Exam conducted with a casting assistant present. Vitals: Estimated body mass index is 42.87 kg/m?? as calculated from the following: Height as of 12/09/23: 4' 10 . Weight as of this encounter: 205 lb 1.9 oz. BP: 120/82 Patient's last menstrual period was 07/21/2025. Assessment/Plan ICD-10-CM 1. Well woman exam with routine gynecological exam Z01.419 Pap Smear HPV DNA probe, amplified 2. Weight loss counseling, encounter for Z71.3 metFORMIN XR (Glucophage-XR) 500 MG 24 hr tablet 3. Insulin resistance E88.819 metFORMIN XR (Glucophage-XR) 500 MG 24 hr tablet Annual Exam: Patient presents today for an annual exam. Patient states she is doing well and has no complaints. Pap was obtained without difficulty. Discussed weaning off Zoloft and patient will reach out to office if she needs refills sent and if she desires to continue medication. Orders Placed This Encounter Procedures HPV DNA probe, amplified Follow Up: Patient is to return in one year for annual unless needed otherwise. Documented by Tracy Ang LPN on behalf of: Graham Villalobos DO documented in this encounter Plan of Treatment Upcoming Encounters Date Type Department Care Team (Late st Contact Info) Description 08/07/2026 10:00 AM EDT Procedure Visit [facility] [address] [place] [address] Graham Villalobos, DO [address] [place] [address] Scheduled Orders Name Type Priority Associated Diagnoses Orde r Schedule Pap Smear Pathology and Cytology Routine Well woman exam with routine gynecological exam Ordered: 07/31/2025 HPV DNA probe, amplified Microbiology Routine Well woman exam with routine gynecological exam Ordered: 07/31/2025 documented as of this encounter Procedures Procedure Name Priority Date/Time Associated Diagnosis Comments PAP TEST, EXTERNAL Routine 07/26/2024 12:00 AM EDT documented in this encounter Results * PAP TEST, EXTERNAL (07/26/2024 12:00 AM EDT) Griselda [facility] CYTOLOGY ORDERABLES Final Result EXTERNAL LAB documented in this encounter Visit Diagnoses Diagnosis Well woman exam with routine gynecological exam Routine gynecological examination Weight loss counseling, encounter for Insulin resistance Other abnormal glucose documented in this encounter Care Teams Machinery Repair Maintenance Supervisor Relationship Specialty Start Date End Date Lizandro Harrison MD PCP - General 05/29/23 documented as of this encounter
--- OUTSIDE RECORDS SUMMARY | 2025-07-31 13:00 | XMS_ITS | Encounter Summary ---
Author Organization [employer] Address [id number] [address] [place] [address] Care Team Providers Care Institutional Custodian Name Role Phone Lizandro Harrison DO Primary Care Provider + [phone] Reason for Visit * Reason Onset Date Comments Med Refill 09/08/2022 Encounter Details Date Type Department Care Team (Late st Contact Info) Description 09/08/2022 Refill [facility] - Family Medicine [address] [place] [address] Zeynep Alcocer CMA Social History Tobacco Use Types Packs/Day Years Used Date Smoking Tobacco: Never Smokeless Tobacco: Never Alcohol Use Standard Drinks/Week Comments Yes 0 (1 standard drink = 0.6 oz pur e alcohol) rare Childcare Answer Date Recorded Childcare Unknown 03/23/2019 Employment Answer Date Recorded Employment Unknown 03/23/2019 Purpose - Life Answer Date Recorded Purpose and direction in life Unknown Comments No Sex and Gender Information Value Date Recorded Sex Assigned at Not on file Legal Sex Female 11:34 AM EDT Gender Identity Not on file Sexual Orientation Not on file documented as of this encounter Plan of Treatment Not on file documented as of this encounter Visit Diagnoses Not on filedocumented in this encounter Care Teams Institutional Custodian Relationship Specialty Start Date End Date Lizandro Harrison DO [address], [facility] [place] [address] PCP - General Family Medicine 02/10/17 documented as of this encounter
--- OUTSIDE RECORDS SUMMARY | 2025-07-31 13:01 | XMS_ITS | Encounter Summary ---
Author Organization [employer] Address [id number] [address] [place] [address] Care Team Providers Care Ceramic Tile Installer Name Role Phone Lizandro Harrison Primary Care Provider + [phone] Reason for Visit * Reason Comments Med Refill Encounter Details Date Type Department Care Team (Late st Contact Info) Description 03/01/2023 Refill [facility] - Family Medicine [address] [place] [id number] Beata Funes, AUTOMOTIVE EXHAUST EMISSIONS TECHNICIAN-MANAGER STRATEGIC DEVELOPMENT [address] [place] [address] Social History Tobacco Use Types Packs/Day Years Used Date Smoking Tobacco: Never Smokeless Tobacco: Never Alcohol Use Standard Drinks/Week Comments Yes 0 (1 standard drink = 0.6 oz pur e alcohol) rare Childcare Answer Date Recorded Childcare Unknown 03/23/2019 Employment Answer Date Recorded Employment Unknown 03/23/2019 Hunger Screening Answer Date Recorded Within the past 12 months we worried whether our food would run out before we got money to buy more. Never True 02/11/2023 Within the past 12 months th e food we bought just didn't last and we didn't have money to get more. Never True 02/11/2023 Purpose - Life Answer Date Recorded Purpose [...] on filedocumented in this encounter Care Teams Ceramic Tile Installer Relationship Specialty Start Date End Date Lizandro Harrison DO [address], [place] [address] PCP - General Family Medicine 02/10/17 documented as of this encounter
--- OUTSIDE RECORDS SUMMARY | 2025-07-31 13:01 | XMS_ITS | Clinical Summary ---
Author Organization [facility] Address [address] [place] [address] Phone Care Team Providers Care Fish Dressing Machine Feeder Name Role Phone Unavailable Primary Care Provider Unavailabl e Social History Tobacco Use Types Packs/Day Years Used Date Smoking Tobacco: Never Assessed Comments Unknown Sex and Gender Information Value Date Recorded Sex Assigned at Not on file Legal Sex Female 2:59 PM EST Gender Identity Not on file Sexual Orientation Not on file Plan of Treatment Not on file
--- OUTSIDE RECORDS SUMMARY | 2025-07-31 13:01 | XMS_ITS | CCD ---
Author Organization [facility] Care Team Providers Care Transit Survey Worker Name Role Phone DR ABBY VILLALOBOS Admitting Unavailable GRISELDA, DR MORA Attending Unavailable CHRISTY, DR LIZANDRO Mccloud Primary Care Unavailable GRISELDA, DR MORA Consulting Unavailable Christy, Lizandro Primary Care Unavailable Andrzej Barrera Admitting Unavailable Andrzej Barrera Attending Unavailable Abby Villalobos Referring Unavailable BEATA FUNES Referring Unavailable SELVINLONG, LIZANDRO Mccloud Primary Care Unavailable GHULAM BRYANT Attending Unavailable BEATA FUNES Referring Unavailable ABBY VILLALOBOS Attending Unavailable SelvinloLiznadro martinez MD Primary Care Provider [phone] Furlong DOLizandro Primary Care Provider Furlong DOLizandro Primary Care Provider JOSE FNG, LIZANDRO Mccloud Attending Unavailable FURLONG, LIZANDRO Mccloud Referring Unavailable FURLONG, LIZANDRO Mccloud Primary Care Unavailable FURLONG, LIZANDRO Mccloud Attending Unavailable FURLONG, LIZANDRO Mccloud Referring Unavailable FURLONG, LIZANDRO Mccloud Primary Care Unavailable FURLONG, LIZANDRO Mccloud Attending Unavailable FURLONG, LIZANDRO Mccloud Referring Unavailable FURLONG, LIZANDRO Mccloud Primary Care Unavailable FURLONG, LIZANDRO Mccloud Attending Unavailable FURLONG, LIZANDRO G Referring Unavailable FURLONG, LIZANDRO Mccloud Primary Care Unavailable FURLONG, LIZANDRO Mccloud Attending Unavailable FURLONGLIZANDRO Referring Unavailable FURLONG, LIZANDRO Mccloud Primary Care Unavailable Lizandro Harrison MD Primary Care Provider Medications Current Medications Medication Drug Class(es) Dates Sig (Normalized) Sig (Original) [id number] 200 actuat albuterol 0.09 mg/actuat metered dose inhaler (20 sources) beta2-Adrenergic Agonist Start: 02-15-2024 Albuterol Sulfate Active 1 INH INHALATION Every 6 hours February 15, 2024 12:00am Start: 10-23-2023 End: 04-05-2025 albuterol (PROVENTIL HFA;SHUN TOLIN HFA) 90 mcg/actuation inhaler Indications: Mild intermittent asthma, unspecified whether complicated Inhale 2 puffs in the morning and 2 puffs at noon and 2 puffs in the evening and 2 puffs before bedtime. As needed. 18 g 1 10/23/2023 04/05/2025 Discontinued (Therapy completed) Start: 07-02-2022 take 2 puff(s) by in halation every six hours for wheezing albuterol HFA 90 mcg/act inhaler Inhale 2 puffs every 6 (six) hours if needed for wheezing. 07/02/2022 Active Start: 07-02-2022 End: 10-23-2023 take 2 [...] bedtime. As needed. 0 10/23/2023 Discontinued (Reorder) albuterol-budesonide (AIRSUPRA) 90-80 mcg/actuation HFA aerosol inhaler (6 sources) Start: 04-05-2025 take 2 puff(s) by inhalation every four hours as needed albuterol-budesonide (AIRSUPRA) 90-80 mcg/actuation HFA aerosol inhaler Inhale 2 puffs every 4 (four) hours as needed (SOB, wheeze). 10.7 g 1 04/05/2025 Active amoxicillin 875 mg oral tablet (1 source) Penicillin-class Antibacterial Start: 12-08-2024 End: 12-18-2024 take 1 tablet by mouth in the morning, then take 1 tablet by mouth at bedtime amoxicillin (AMOXIL) 875 mg tablet Take 1 tablet (875 mg total) by mouth in the morning and 1 tablet (875 mg total) before bedtime. Do all this for 10 days. 20 tablet 12/08/2024 12/18/2024 Active amoxicillin 875 mg / clavulanate 125 mg oral tablet (1 source) Penicillin-class Antibacterial Start: 02-15-2024 take 1 tablet by mouth twice daily Amoxicillin-Pot Clavulanate Active 1 TAB PO Twice daily 20 February 15, 2024 12:00am cetirizine hydrochloride 10 mg chewable tablet (20 sources) Histamine-1 Receptor Antagonist cetirizine (ZyrTEC) 10 MG chewable tablet Chew 10 mg in the morning. Active Ethinyl Estradiol / Ferrous fumarate / Norethindrone (9 sources) Estrogen Start: 12-21-2024 take 1 tablet by mouth once daily norethindrone-ethinyl estradiol-iron (Lo Loestrin Fe) 1 MG-10 MCG / 10 MCG tablet Indications: Encounter for initial prescription of contraceptive pills Take 1 tablet by mouth Daily for 28 days Take 1 tablet by mouth daily 28 tablet 11 12/21/2024 Active LO LOESTRIN FE 1 mg-10 mcg (24)/10 mcg (2) tablet Take 1 tablet by mouth. Active fluticasone propionate 0.05 mg/actuat metered dose nasal spray (12 sources) Corticosteroid Start: 06-27-2025 take 2 spray(s) nasal route in the morning fluticasone propionate (FLONASE) 50 mcg/actuation nasal spray SPRAY 2 SPRAYS INTO EACH NOSTRIL IN THE MORNING 48 mL 1 06/27/2025 Active Start: 01-01-2025 End: 06-27-2025 take 2 spray(s) nasal route in the morning fluticasone propionate (FLONASE) 50 mcg/actuation nasal spray SPRAY 2 SPRAYS INTO EACH NOSTRIL IN THE MORNING 48 mL 1 01/01/2025 06/27/2025 Discontinued Start: 12-08-2024 End: 01-01-2025 take 2 spray(s) nasal route in the morning fluticasone propionate (FLONASE) 50 mcg/actuation nasal spray Administer 2 sprays into each nostril in the morning. 16 g 1 12/08/2024 01/01/2025 Discontinued ibuprofen 800 mg oral tablet (17 sources) Nonsteroidal Anti-inflammatory Drug Start: 05-26-2023 End: 04-05-2025 take 1 tablet by mouth every eight hours ibuprofen 800 MG tablet Take 800 mg by mouth every 8 (eight) hours. 05/26/2023 Active meclizine hydrochloride 25 mg oral tablet (17 sources) Antiemetic Start: 10-10-2022 End: 04-05-2025 take 1 tablet by mouth three times daily as needed for dizziness meclizine (Antivert) 25 MG tablet Take 25 mg by mouth 3 (three) times a day as needed for dizziness. 10/10/2022 Active 24 hr metFORMIN hydrochloride 500 mg extended release oral tablet (19 sources) Biguanide Start: 07-26-2024 End: 07-26-2026 take 1 tablet by mouth every twenty-four hours at mealtime metFORMIN XR (Glucophage-XR) 500 MG 24 hr tablet Indications: Weight loss counseling, encounter for , Insulin resistance Take 1 tablet (500 mg) by mouth in the evening. Take with meals Do not crush, chew, or split. 90 tablet 3 07/31/2025 07/26/2026 Active omeprazole 40 mg delayed release oral capsule (20 sources) Proton Pump Inhibitor Start: 02-15-2024 take 20 mg by mouth once daily Omeprazole Active 20 MG PO Daily February 15, 2024 12:00am Start: 04-27-2023 End: 05-13-2025 take 1 capsule by mouth in the morning omeprazole (PriLOSEC) [address] capsule Take 1 capsule by mouth in the morning. 04/27/2023 Active phentermine hydrochloride 15 mg oral capsule (5 sources) Sympathomimetic Amine Anorectic Start: 04-10-2025 End: 05-12-2025 take 1 capsule by mouth once daily in the morning phentermine 15 MG capsule Indications: Morbid obesity (CMS-HCC) Take 1 capsule (15 mg total) by mouth every morning. 30 capsule 05/12/2025 Active predniSONE 20 mg oral tablet (3 sources) Start: 01-03-2025 End: 01-08-2025 take 1 tablet by mouth three times daily predniSONE (DELTASONE) 20 mg tablet Take 1 tablet (20 mg total) by mouth 3 (three) times a day for 5 days. 15 tablet 01/03/2025 01/08/2025 Active Start: 10-23-2023 End: 10-30-2023 take 1 tablet by mouth in the morning predniSONE (DELTASONE) 20 mg tablet Take 1 tablet (20 mg total) by mouth in the morning for 7 days. 7 tablet 0 10/23/2023 10/30/2023 Active sertraline 50 mg oral tablet (20 sources) Serotonin Reuptake Inhibitor Start: 03-01-2023 End: 12-08-2024 take 1 tablet by mouth at bedtime sertraline (Zoloft) 50 MG tablet Take 1 tablet by mouth at bedtime. 03/01/2023 Active tiZANidine 4 mg oral tablet (1 [...] 28, 2021 10:33am 420 daily for headaches [id number] Fumarate-Fa () 28-800 mg-mcg Tablet (2 sources) Start: 07-26-2020 End: 01-28-2021 take 1 tablet by mouth once daily [id number] Fumarate-Fa () 28-800 mg-mcg Tablet Discontinued 1 TAB PO Daily July 26, 2020 12:00am January 28, 2021 10:33am Problems Active Problems Problem Classification Problem Date Documented Date Episodic/Chronic Administrative/social admission (4 sources) Patient encounter status; Translations: [Dietary counseling and surveillance] 07-26-2024 Episodic Asthma (18 sources) Asthma; Translations: [Unspecified asthma, uncomplicated] Onset: 07-02-2022 07-02-2022 Chronic Diseases of white blood cells (20 sources) Leukocytosis; Translations: [Elevated white blood cell count, unspecified] Onset: 11-04-2020 08-02-2021 Chronic Esophageal disorders (1 source) Gastro-esophageal reflux disease with esophagitis; Translations: [Gastroesophageal reflux disease with esophagitis without hemorrhage] 10-23-2023 Chronic Gastritis and duodenitis (3 sources) Chronic gastritis; Translations: [Unspecified chronic gastritis without bleeding] Onset: 02-23-2023 04-05-2025 Chronic Immunizations and screening for infectious disease (1 source) Encounter for screening for human papillomavirus (HPV); Translations: [ENC SCREENING HUMAN PAPILLOMAVIRUS] Onset: 07-12-2022 Episodic Mood disorders (17 sources) Depressive disorder; Translations: [Depression] Onset: 08-11-2022 02-15-2024 Chronic Other acquired deformities (1 source) Wrist drop, right wrist; Translations: [Wrist drop, right wrist] Onset: 04-05-2025 Episodic Other connective tissue disease (2 sources) Pain in right finger(s); Translations: [Pain in right finger(s)] Onset: 04-05-2025 Episodic Other nervous system disorders (15 sources) Carpal tunnel syndrome; Translations: [Carpal tunnel syndrome, unspecified upper limb] Onset: 07-02-2022 07-02-2022 Chronic Other nervous system disorders (2 sources) Other chronic pain; Translations: [Other chronic pain] Onset: 04-05-2025 Chronic Other non-traumatic joint disorders (1 source) Pain of right wrist; Translations: [Pain in right wrist] 04-05-2025 Episodic Other non-traumatic joint disorders (1 source) Pain in right wrist; Translations: [Pain in right wrist] Onset: 05-01-2025 Episodic Other nutritional; endocrine; and metabolic disorders (4 sources) Insulin resistance; Translations: [Insulin resistance] 07-26-2024 Chronic Other nutritional; endocrine; and metabolic disorders (9 sources) Morbid obesity; Translations: [Morbid (severe) obesity due to excess calories] Onset: 05-12-2025 10-23-2023 Chronic Other nutritional; endocrine; and metabolic disorders (1 source) Morbid (severe) obesity due to excess calories; Translations: [Morbid (severe) obesity due to excess calories] Onset: 05-12-2025 Chronic Other screening for suspected conditions (not mental disorders or infectious disease) (4 sources) Encounter for screening for malignant neoplasm of cervix; Translations: [ENC SCREENING MALIG NEOPLASM CERV] Onset: 07-10-2022 Episodic Other upper respiratory disease (16 sources) Allergic rhinitis; Translations: [Allergic rhinitis, unspecified] Onset: 07-02-2022 07-02-2022 Chronic Other upper respiratory disease (1 source) Allergic rhinitis, unspecified; Translations: [Allergic rhinitis, unspecified] Onset: 07-02-2022 Chronic Other upper respiratory infections (2 sources) Acute pharyngitis, unspecified; Translations: [Acute pharyngitis] 02-15-2024 Episodic Unclassified (1 source) Other thrombocytosis; Translations: [Other thrombocytosis] Onset: 08-02-2021 Unclassified (1 source) Weight Check Onset: 05-12-2025 Unclassified (1 source) well person Onset: 04-05-2025 Unclassified (1 source) Sinus Problem Onset: 12-08-2024 Past or Other Problems Problem Classification Problem Date Documented Da te Episodic/Chronic Abdominal pain (15 sources) Pain in pelvis; Translations: [Pelvic and perineal pain] Onset: 06-13-2023 10-23-2023 Episodic Conditions associated with dizziness or vertigo (20 sources) Benign paroxysmal positional vertigo; Translations: [Benign paroxysmal vertigo, unspecified ear] Onset: 02-09-2019 07-02-2022 Episodic Deficiency and other anemia (17 sources) Anemia; Translations: [Anemia, unspecified] Onset: 10-23-2023 11-01-2020 Episodic Deficiency and other anemia (15 sources) Iron deficiency anemia; Translations: [Iron deficiency anemia, unspecified] Onset: 11-04-2020 07-02-2022 Episodic Diabetes or abnormal glucose tolerance complicating ; childbirth; or the puerperium (15 sources) History of gestational diabetes mellitus; Translations: [Personal history of gestational diabetes] Onset: 07-02-2022 07-02-2022 Episodic Gastritis and duodenitis (15 sources) Gastritis; Translations: [Gastritis, unspecified, without bleeding] Onset: 10-12-2005 02-23-2023 Episodic Mood disorders (11 sources) Mood disorders Onset: 12-08-2024 Resolved: 04-05-2025 12-08-2024 Neoplasms of unspecified nature or uncertain behavior (17 sources) Thrombocytosis; Translations: [Thrombocythemia] Onset: 08-02-2021 08-02-2021 Episodic Other acquired deformities (1 source) Acquired unequal leg length; Translations: [Unequal limb length (acquired), unspecified site] 10-23-2023 Episodic Other acquired deformities (7 sources) Right wrist drop; Translations: [Wrist drop, right wrist] Onset: 04-05-2025 04-05-2025 Episodic Other connective tissue disease (7 sources) Chronic pain of right upper limb; Translations: [Pain in right finger(s)] Onset: 04-05-2025 04-05-2025 Episodic Other disorders of stomach and duodenum (15 sources) Intestinal metaplasia of gastric mucosa; Translations: [Intestinal metaplasia of gastric mucosa] Onset: 02-23-2023 02-23-2023 Episodic Ovarian cyst (15 sources) Cyst of left ovary; Translations: [Unspecified ovarian cyst, left side] Onset: 08-22-2023 10-23-2023 Episodic Spondylosis; intervertebral disc disorders; other back problems (1 source) Backache; Translations: [Dorsalgia, unspecified] 10-23-2023 Episodic Superficial injury; contusion (15 sources) Foreign body in forearm; Translations: [Superficial foreign body of unspecified forearm, initial encounter] Onset: 07-02-2022 07-02-2022 Episodic Unclassified (15 sources) Onset: 10-23-2023 Resolved: 04-05-2025 10-23-2023 Results Test Name Value Interpretation Reference Range Facility XR WRIST RT MIN 3 VWSon 04-12 XR WRIST RT MIN 3 VWS XR WRIST RT MIN 3 VWS XR WRIST RT MIN 3 VWS HISTORY: Right wrist pain. COMPARISON: none IMPRESSION: No acute fracture or dislocation. Mild degenerative changes first [facility]. Finalized by Taran Henao MD on 05/05/2025 5:23 AM [facility] XR FINGER THUMB RT MIN 2 VWS on 05-04-2025 XR FINGER THUMB RT MIN 2 VWS XR FINGER THUMB RT MIN 2 VWS Exam: 3 views of the right hand dated 05/01/2025. HISTORY: Right thumb and right wrist pain from repetitive movements at work. COMPARISON: None. IMPRESSION: Moderate narrowing of the first metacarpophalangeal joint space with early spur formation on both sides of the joint. Early degenerative changes of the interphalangeal joint of the right thumb. No acute osseous abnormalities in the right hand. Finalized by Mary Jo Merchant MD on 05/04/2025 8:48 PM Normal [facility] COMPREHENSIVE METABOLIC PANE [place] 04-05-2025 Albumin [Mass/Vol] 4.0 g/dL Normal 3.2-5.3 [facility] Comment on above: Performed By: #### C MP #### [facility] ([facility]) [address] [place] [address] VIR ALP [Catalytic activity/Vol] 69 U/L Normal 39-130 [facility] Comment on above: Performed By: #### C MP #### [facility] ([facility]) [address] [place] [address] VIR ALT [Catalytic activity/Vol] 16 U/L Normal <=31 [facility] Comment on above: Performed By: #### C MP #### [facility] ([facility]) [address] [place] [address] VIR Anion gap [Moles/Vol] 12 mmol/L Normal 5-15 [facility] Comment on above: Performed By: #### C MP #### [facility] ([facility]) [address] [place] [address] VIR AST [Catalytic activity/Vol] 24 U/L Normal <=41 [facility] Comment on above: Performed By: #### C MP #### [facility] ([facility]) [address] [place] [address] VIR Bilirubin [Mass/Vol] 0.1 mg/dL Low 0.3-1.2 [facility] Comment on above: Performed By: #### C MP #### [facility] ([facility]) [address] [place] [address] VIR Calcium [Mass/Vol] 9.9 mg/dL Normal 8.5-10.5 [facility] Comment on above: Performed By: #### C MP #### [facility] ([facility]) [address] [place] [address] VIR Chloride [Moles/Vol] 99 mmol/L Normal 98-109 [facility] Comment on above: Performed By: #### C MP #### [facility] ([facility]) [address] [place] [address] VIR CO2 [Moles/Vol] 24 mmol/L Normal 22-32 [facility] Comment on above: Performed By: #### C MP #### [facility] ([facility]) [address] [place] [address] VIR Creatinine [Mass/Vol] 0.66 mg/dL Normal 0.40-1.00 [facility] Comment on above: Result Comment: METH OD TRACEABLE TO IDMS STANDARD Performed By: #### C MP #### [facility] ([facility]) [address] [place] [address] VIR EGFR (CKD-EPI) NON-RACE DEPENDENT >^90 Normal >=60 [facility] Comment on above: Result Comment: Repo rted eGFR is based on the CKD-EPI 2020 equation that does not use a race coefficient. Performed By: #### C MP #### [facility] ([facility]) [address] [place] [address] VIR Glucose [Mass/Vol] 65 mg/dL Normal 65-99 [facility] Comment on above: Performed By: #### C MP #### [facility] ([facility]) [address] [place] [address] VIR Potassium [Moles/Vol] 4.4 mmol/L Normal 3.5-5.0 [facility] Comment on above: Performed By: #### C MP #### [facility] ([facility]) [address] [place] [address] VIR Protein [Mass/Vol] 8.4 g/dL High 6.0-8.0 [facility] Comment on above: Performed By: #### C MP #### [facility] ([facility]) [address] [place] [address] VIR Sodium [Moles/Vol] 135 mmol/L Normal 134-146 [facility] Comment on above: Performed By: #### C MP #### [facility] ([facility]) [address] [place] [address] VIR Urea nitrogen [Mass/Vol] 11 mg/dL Normal 5-23 [facility] Comment on above: Performed By: #### C MP #### [facility] ([facility]) [address] [place] [address] VIR LIPID PROFILEon 04-05-2025 Cholesterol [Mass/Vol] 228 mg/dL High 150-200 [facility] Comment on above: Order Comment: Fasti ng Performed By: #### L IPR #### [facility] ([facility]) [address] [place] [address] VIR Cholesterol in HDL [Mass/Vol] 52 mg/dL Normal >39 [facility] Comment on above: Order Comment: Fasti ng Result Comment: HDL <40 mg/dL - High Risk HDL > or = 40mg/dL- Desirable HDL >60 mg/dL - Negative Risk Performed By: #### L IPR #### [facility] ([facility]) [address] [place] [address] VIR Cholesterol in LDL [Mass/Vol] 109 mg/dL Normal <130 [facility] Comment on above: Order Comment: Fasti ng Result Comment: LDL <100 mg/dL - Desirable LDL >160 mg/dL - High Risk Performed By: #### L IPR #### [facility] ([facility]) [address] [place] [address] VIR CHOLESTEROL:HDL 4.4 Normal 1.0-5.0 [facility] Comment on above: Order Comment: Fasti ng Performed By: #### L IPR #### [facility] ([facility]) [address] [place] [address] VIR Triglyceride [Mass/Vol] 333 mg/dL High 27-150 [facility] Comment on above: Order Comment: Fasti ng Performed By: #### L IPR #### [facility] ([facility]) [address] [place] [address] VIR VERY LOW LIPOPROTEIN 67 mg/dL High 0-30 [facility] Comment on above: Order Comment: Fasti ng Performed By: #### L IPR #### [facility] ([facility]) [address] [place] [address] VIR TSH WITH REFLEXon 04-05-2025 TSH 1.81 uIU/mL Normal 0.49-4.67 [facility] Comment on above: Performed By: #### T SHR #### [facility] ([facility]) [address] [place] [address] VIR IGP,APTIMA HPV,AGE GDLNon AGE GDLN ACOG TESTING Note . [facility] Comment on above: TESTS RESULT FLAG UN ITS REF RANGE LAB Clinician Provided Cytology Information Source.............Cervix;Endocervix No. of containers..01 ThinPrep Vial Age Algo ACOG Shahnaz... FLAG LEGEND: L-Low Normal,H-High Normal,LL-Alert Low,HH-Alert High <-Panic Low,>-Panic High,A-Abnormal,AA-Critical Abnormal Performed at: 01 =[address] [address] Molly Dunbar MD, HPV APTIMA Negative Negative [facility] Comment on above: This nucleic acid am plification test detects fourteen high- risk HPV types (16,18,31,33,35,39,45,51,52,56,58,59,66,68) without differentiation. Performed at: =[address] [id number] [place] Consultant: Molly Dunbar MD, Phone: [phone] Performed at: [address] [id number] [place] Consultant: Molly Dunbar MD, Phone: [phone] IGP, APTIMA HPV, RFX 16/18,[address] [facility] Comment on above: TESTS RESULT FLAG UN ITS REF RANGE LAB DIAGNOSIS: 02 NEGATIVE FOR INTRAEPITHELIAL LESION OR MALIGNANCY. Specimen adequacy: 02 Satisfactory for evaluation. No endocervical component is identified. Performed by: 02 Juliocesar Alvarado, Independent Consultant (ASCP) . 02 Note: Note 02 The Pap smear is a screening test designed to aid in the detection of premalignant and malignant conditions of the uterine cervix. It is not a diagnostic procedure and should not be used as the sole means of detecting cervical cancer. Both false-positive and false-negative reports do occur. Test Methodology: Note 02 This liquid based ThinPrep(R) pap test was screened with the use of an image guided system. HPV Genotype Reflex Note 02 Criteria not met, HPV Genotype not performed. FLAG LEGEND: L-Low Normal,H-High Normal,LL-Alert Low,HH-Alert High <-Panic Low,>-Panic High,A-Abnormal,AA-Critical Abnormal Performed at: 02 [facility] [address] [place] [address] Molly Dunbar MD, BRUSH-SPATULA CERVIX ENDOCERVIX [facility]INIS[facility] No Panel Informationon 07-26 [facility] No Panel InformationOrdered By: Jennie Mars on 02-15-2024 Quick Strep (POC) [facility] COMPREHENSIVE METABOLIC PANE [place] 10-23-2023 Albumin [Mass/Vol] 4.0 g/dL Normal 3.2-5.3 [facility] Comment on above: Performed By: #### Ana TAPIA, 69738-0 #### [facility] ([id number]) [address] [place] [address] ALP [Catalytic activity/Vol] 87 U/L Normal 39-130 [facility] Comment on above: Performed By: #### Ana TAPIA, 61060-7 #### [facility] ([id number]) [address] [place] [address] ALT [Catalytic activity/Vol] 16 U/L Normal 0-31 [facility] Comment on above: Performed By: #### Ana TAPIA, 51020-9 #### [facility] ([id number]) [address] [place] [address] Anion gap [Moles/Vol] 5 mmol/L Normal 5-15 [facility] Comment on above: Performed By: #### Ana TAPIA, 48042-3 #### [facility] ([id number]) [address] [place] [address] AST [Catalytic activity/Vol] 18 U/L Normal 0-41 [facility] Comment on above: Performed By: #### Ana TAPIA, 58523-7 #### [facility] ([id number]) [address], [address] [place] [address] Bilirubin [Mass/Vol] 0.2 mg/dL Low 0.3-1.2 [facility] Comment on above: Performed By: #### Ana TAPIA, 05849-0 #### [facility] ([id number]) [address], [address] [place] [address] Calcium [Mass/Vol] 9.6 mg/dL Normal 8.5-10.5 [facility] Comment on above: Performed By: #### Ana TAPIA, 92512-6 #### [facility] ([id number]) [address], [address] [place] [address] Chloride [Moles/Vol] 100 mmol/L Normal 98-109 [facility] Comment on above: Performed By: #### Ana TAPIA, 67560-5 #### [facility] ([id number]) [address], [address] [place] [address] CO2 [Moles/Vol] 31 mmol/L Normal 22-32 [facility] Comment on above: Performed By: #### Ana TAPIA, 56030-3 #### [facility] ([id number]) [address], [address] [place] [address] Creatinine [Mass/Vol] 0.63 mg/dL Normal 0.40-1.00 [facility] Comment on above: Result Comment: METH OD TRACEABLE TO IDMS STANDARD Performed By: #### Ana TAPIA, 26352-6 #### [facility] ([id number]) [address], [address] [place] [address] eGFR (CKD-EPI) NON-RACE DEPENDENT >90 Normal >59 [facility] Comment on above: Result Comment: Reported eGFR is based on the CKD-EPI 2020 equation that does not use a race coefficient. Performed By: #### Ana TAPIA, 23246-3 #### [facility] ([id number]) [address], [address] [place] [address] Glucose [Mass/Vol] 86 mg/dL Normal 65-99 [facility] Comment on above: Performed By: #### Ana TAPIA, 61748-4 #### [facility] ([id number]) [address], [address] [place] [address] Potassium [Moles/Vol] 4.2 mmol/L Normal 3.5-5.0 [facility] Comment on above: Performed By: #### Ana TAPIA, 80324-2 #### [facility] ([id number]) [address], [address] [place] [address] Protein [Mass/Vol] 7.9 g/dL Normal 6.0-8.0 [facility] Comment on above: Performed By: #### Ana TAPIA, 80490-6 #### [facility] ([id number]) [address], [address] [place] [address] Sodium [Moles/Vol] 136 mmol/L Normal 134-146 [facility] Comment on above: Performed By: #### Ana TAPIA, 56951-6 #### [facility] ([id number]) [address], [address] [place] [address] Urea nitrogen [Mass/Vol] 11 mg/dL Normal 5-23 [facility] Comment on above: Performed By: #### Ana TAPIA, 72782-2 #### [facility] ([id number]) [address], [address] [place] [address] Lipid 1996 panelon 4 Cholesterol [Mass/Vol] 247 mg/dL High 150-200 [facility] [place] [facility] Comment on above: Performed By: #### Ana TAPIA, 12899-7 #### [facility] ([id number]) [address], [address] [place] [address] Cholesterol in HDL [Mass/Vol] 42 mg/dL Normal >39 [facility] Comment on above: Result Comment: HDL <40 mg/dL - High Risk HDL > or = 40mg/dL- Desirable HDL >60 mg/dL - Negative Risk Performed By: #### Ana TAPIA, 78297-0 #### [facility] ([id number]) [address], [address] [place] [address] Cholesterol in LDL [Mass/Vol] 162 mg/dL High <130 [facility] Comment on above: Result Comment: LDL <100 mg/dL - Desirable LDL >160 mg/dL - High Risk Performed By: #### Ana TAPIA, 83523-3 #### [facility] ([id number]) [address] [place] [address] Cholesterol in VLDL [Mass/Vol] 43 mg/dL High 0-30 [facility] Comment on above: Performed By: #### Ana TAPIA, 55763-7 #### [facility] ([id number]) [address] [place] [address] CHOLESTEROL:HDL 5.9 High 1.0-5.0 [facility] Comment on above: Performed By: #### Ana TAPIA, 54143-6 #### [facility] ([id number]) [address] [place] [address] Triglyceride [Mass/Vol] 213 mg/dL High 27-150 [facility] Comment on above: Performed By: #### C , 17333-9 #### [facility] ([id number]) [address], [address] [place] [address] PAP ACOG PANEL 2: 30 to 65on 07-21-2022 . . Normal [facility] Comment on above: Result Comment: Perf ormed at: WB Performed By: #### 4 [id number] #### [facility] [address] [address] [address] Haider Britt Age Gdln ACOG Testing 30-65 Normal [facility] Comment on above: Performed By: #### 4 [id number] #### [facility] [address] [place] [address] Dr. Haider Britt DIAGNOSIS: Comment Abnormal [facility] Comment on above: Result Comment: EPIT HELIAL CELL ABNORMALITY. ATYPICAL SQUAMOUS CELLS OF UNDETERMINED SIGNIFICANCE (ASC-US). Performed at: WB Performed By: #### 4 [id number] #### [facility] [address] [address] [address] Haider Britt Electronically signed by: Comment Normal [facility] Comment on above: Result Comment: Ynes Merida MD, Pathologist Performed at: WB Performed By: #### 4 [id number] #### [facility] [address] [address] [address] Haider Britt HPV Aptima Negative Normal Negative [facility] Comment on above: Result Comment: This nucleic acid amplification test detects fourteen high-risk HPV types (16,18,31,33,35,39,45,51,52,56,58,59,66,68) without differentiation. Performed at: =G Performed By: #### 4 [id number] #### [facility] [address] [place] [address] Dr. Haider Britt Methodology: Comment Normal [facility] Comment on above: Result Comment: This liquid based ThinPrep(R) pap test was screened with the use of an image guided system. Performed at: WB Performed By: #### 4 [id number] #### [facility] [address] [address] [address] Haider Britt Note: Comment Normal [facility] Comment on above: Result Comment: The Pap smear is a screening test designed to aid in the detection of premalignant and malignant conditions of the uterine cervix. It is not a diagnostic procedure and should not be used as the sole means of detecting cervical cancer. Both false-positive and false-negative reports do occur. . Performed at: WB Performed By: #### 4 [id number] #### [facility] [address] [address] [address] Haider Britt Pathologist Provided ICD10 Comment Normal [facility] Comment on above: Result Comment: [id number]. [id number] Performed at: WB Performed By: #### 4 [id number] #### [facility] [address] [address] [address] Haider Britt Performed by: Comment Normal [facility] Comment on above: Result Comment: Fiona Leal, Independent Consultant (ASCP) Performed at: WB Performed By: #### 4 [id number] #### [facility] [address] [address] [address] Haider Britt Specimen adequacy: Comment Normal [facility] Comment on above: Result Comment: Sati sfactory for evaluation. Endocervical and/or squamous metaplastic cells (endocervical component) are present. Performed at: WB Performed By: #### 4 [id number] #### [facility] [address] [address] [address] Haider Britt Provider Letteron 08-20-2020 Provider Letter (Inserted Image. Cathie ble to display) August 20, 2020 ALLYSON CARDONA [address] [place] [address] ALLYSON CARDONA 1985 Dear Allyson , You [...] your understanding. Sincerely, [facility]/Dr Jenny Medeiros [facility] Vital Signs Date Time Vital Sign Value Performing Clinician Facility 07-31-2025 08:59-0400 Body mass index (BMI) [Ratio] 42.87 kg/m2 Abby Griselda DO Work Phone: [facility] 07-31-2025 08:59-0400 Body weight 93.04 kg Abby Griselda DO Work Phone: [facility] 07-31-2025 08:59-0400 Diastolic blood pressure 82 mm[Hg] Abby Griselda DO Work Phone: [facility] 07-31-2025 08:59-0400 Systolic blood pressure 120 mm[Hg] Abby Griselda DO Work Phone: [facility] 05-12-2025 09:20-0400 Body height 147.3 cm Lizandro Furlong DO Work Phone: [facility] 05-12-2025 09:20-0400 Body mass index (BMI) [Ratio] 43.27 kg/m2 Lizandro Furlong DO Work Phone: [facility] 05-12-2025 09:20-0400 Body temperature 97.7 [degF] Lizandro Furlong DO Work Phone: [facility] 05-12-2025 09:20-0400 Body weight 93.89 kg Lizandro Furlong DO Work Phone: [facility] 05-12-2025 09:20-0400 Diastolic blood pressure 80 mm[Hg] Lizandro Furlong DO Work Phone: [facility] 05-12-2025 09:20-0400 Heart rate 94 /min Lizandro [employer] DO Work Phone: [facility] 05-12-2025 09:20-0400 Respiratory rate 18 /min Lizandro Furlong DO Work Phone: [facility] 05-12-2025 09:20-0400 SaO2% (BldA) [Mass fraction] 98 % Lizandro Furlong DO Work Phone: [facility] 05-12-2025 09:20-0400 Systolic blood pressure 124 mm[Hg] Lizandro Furlong DO Work Phone: [facility] 04-05-2025 08:42-0400 Body height 147.3 cm Lizandro Furlong DO Work Phone: [facility] 04-05-2025 08:42-0400 Body mass index (BMI) [Ratio] 43.78 kg/m2 Lizandro Furlong DO Work Phone: [facility] 04-05-2025 08:42-0400 Body temperature 98.4 [degF] Lizandro Furlong DO Work Phone: [facility] [employer] [facility] 04-05-2025 08:42-0400 Body weight 94.98 kg Lizandro Furlong DO Work Phone: [facility] [employer] [facility] 04-05-2025 08:42-0400 Diastolic blood pressure 78 mm[Hg] Lizandro Furlong DO Work Phone: [facility] [employer] [facility] 04-05-2025 08:42-0400 Heart rate 92 /min Lizandro Furlong DO Work Phone: [facility] [employer] [facility] 04-05-2025 08:42-0400 Respiratory rate 18 /min Lizandro Furlong DO Work Phone: [facility] 04-05-2025 08:42-0400 SaO2% (BldA) [Mass fraction] 98 % Lizandro Furlong DO Work Phone: [facility] [employer] [facility] 04-05-2025 08:42-0400 Systolic blood pressure 110 mm[Hg] Lizandro Furlong DO Work Phone: [facility] 12-08-2024 16:40-0500 Body height 147.3 cm Lizandro Furlong DO Work Phone: [facility] 12-08-2024 16:40-0500 Body mass index (BMI) [Ratio] 44.64 kg/m2 Lizandro Furlong DO Work Phone: [facility] 12-08-2024 16:40-0500 Body temperature 98.4 [degF] Lizandro Furlong DO Work Phone: [facility] 12-08-2024 16:40-0500 Body weight 96.89 kg Lizandro Furlong DO Work Phone: [facility] 12-08-2024 16:40-0500 Diastolic blood pressure 70 mm[Hg] Lizandro Furlong DO Work Phone: [facility] 12-08-2024 16:40-0500 Heart rate 88 /min Lizandro Furlong DO Work Phone: [facility] 12-08-2024 16:40-0500 Respiratory rate 18 /min Lizandro Furlong DO Work Phone: [facility] 12-08-2024 16:40-0500 SaO2% (BldA) [Mass fraction] 99 % Lizandro Furlong DO Work Phone: [facility] 12-08-2024 16:40-0500 Systolic blood pressure 108 mm[Hg] Lizandro Furlong DO Work Phone: [facility] 07-26-2024 08:30-0400 Body mass index (BMI) [Ratio] 45.02 kg/m2 Abby Griselda DO Work Phone: [facility] 07-26-2024 08:30-0400 Body weight 97.7 kg Abby Griselda DO Work Phone: [facility] 07-26-2024 08:30-0400 Diastolic blood pressure 80 mm[Hg] Abby Valdiviao DO Work Phone: [facility] 07-26-2024 08:30-0400 Systolic blood pressure 116 mm[Hg] Abby Griselda DO Work Phone: [facility] 02-15-2024 18:07-0400 Body height 152.4 cm [facility] 02-15-2024 18:07-0400 Body mass index (BMI) [Ratio] 41 kg/m2 [facility] 02-15-2024 18:07-0400 Body temperature 98 [degF] [facility] 02-15-2024 18:07-0400 Body weight 95.25 kg [facility] 02-15-2024 18:07-0400 Diastolic blood pressure 96 mm[Hg] [facility] 02-15-2024 18:07-0400 Heart rate 85 /min [facility] 02-15-2024 18:07-0400 Respiratory rate 18 /min [facility] 02-15-2024 18:07-0400 SaO2% (BldA) [Mass fraction] 98 % [facility] 02-15-2024 18:07-0400 Systolic blood pressure 148 mm[Hg] [facility] 10-23-2023 08:35-0500 Body height 147.3 cm Beata Funes APRN-CRIME LAB TECHNICIAN Work Phone: [facility] 10-23-2023 08:35-0500 Body mass index (BMI) [Ratio] 42.85 kg/m2 Beata Funes SPECIAL EDUCATION BUS DRIVER-CRIME LAB TECHNICIAN Work Phone: [facility] 10-23-2023 08:35-0500 Body temperature 97.39 [degF] Beata Funes SPECIAL EDUCATION BUS DRIVER-CRIME LAB TECHNICIAN Work Phone: [facility] 10-23-2023 08:35-0500 Body weight 92.99 kg Beata Funes SPECIAL EDUCATION BUS DRIVER-CRIME LAB TECHNICIAN Work Phone: [facility] 10-23-2023 08:35-0500 Diastolic blood pressure 60 mm[Hg] Beata Funes SPECIAL EDUCATION BUS DRIVER-CRIME LAB TECHNICIAN [facility] 10-23-2023 08:35-0500 Heart rate 98 /min Beata Funes SPECIAL EDUCATION BUS DRIVER-CRIME LAB TECHNICIAN [facility] 10-23-2023 08:35-0500 Respiratory rate 16 /min Beata Funes SPECIAL EDUCATION BUS DRIVER-CRIME LAB TECHNICIAN Work Phone: [facility] 10-23-2023 08:35-0500 SaO2% (BldA) [Mass fraction] 94 % Beata Funes SPECIAL EDUCATION BUS DRIVER-CRIME LAB TECHNICIAN Work Phone: [facility] 10-23-2023 08:35-0500 Systolic blood pressure 110 mm[Hg] Beata Funes SPECIAL EDUCATION BUS DRIVER-CRIME LAB TECHNICIAN Work Phone: [facility] [employer] Encounters Encounter Date Encounter Type Care Provider Facility Start: 07-31-2025 End: 07-31-2025 Bamboo flowsheet Abby Griselda DO Work Phone: [facility] Start: 07-31-2025 End: 07-31-2025 Bamboo flowsheet Abby Griselda DO Work Phone: [facility] Start: 07-31-2025 End: 07-31-2025 Patient encounter procedure Abby Griselda DO Work Phone: [facility] Work Phone: Start: 07-31-2025 End: 07-31-2025 Periodic preventive med est patient 18-39 yrs Abby Griselda DO Work Phone: [facility] Comment on above: Well woman exam with routine gynecological exam; Weight loss counseling, encounter for; Insulin resistance Start: 06-27-2025 End: 06-27-2025 Refill Lizandro G Furlong DO Work Phone: [facility] Start: 05-13-2025 End: 05-13-2025 Refill Lizandro G Furlong DO Work Phone: [facility] Start: 05-12-2025 End: 05-12-2025 Office outpatient visit 15 minutes Lizandro Harrison DO Work Phone: [facility] Comment on above: Morbid obesity (CMS- HCC) (Primary Dx); Chronic gastritis without bleeding, unspecified gastritis type Start: 05-12-2025 End: 05-12-2025 ambulatory [facility] Start: 05-05-2025 End: 07-05-2025 Follow-up encounter Lizandro Harrison DO Work Phone: [facility] Comment on above: X-ray wrist right mi nimum 3 views, X-ray finger thumb right minimum 2 views Start: 05-01-2025 End: 05-01-2025 [facility] Start: 04-10-2025 End: 04-10-2025 Orders Only Lizandro Harrison DO Work Phone: [facility] Comment on above: Obesity, morbid (CMS -HCC) (Primary Dx) Start: 04-05-2025 End: 04-05-2025 Patient encounter status Lizandro Harrison DO Work Phone: [facility] [employer] Work Phone: Start: 04-05-2025 End: 04-05-2025 Periodic preventive med est patient 40-64yrs Lizandro Harrison DO Work Phone: [facility] Comment on above: Well adult exam (Kita beata Dx); Chronic pain of right thumb; Right wrist drop; Chronic gastritis without bleeding, unspecified gastritis type; Mild intermittent asthma, unspecified whether complicated; Allergic rhinitis; Obesity, morbid (CMS-HCC); Persistent depressive disorder; Right wrist pain Start: 04-05-2025 End: 04-05-2025 ambulatory [facility] Start: 04-05-2025 Encounter for genera l adult medical examination without abnormal findings [facility] Start: 02-09-2025 End: 02-09-2025 Refill Lizandro Harrison DO Work Phone: [facility] Start: 01-03-2025 End: 01-03-2025 Orders Only Lizandro Harrison DO Work Phone: [facility] Start: 12-30-2024 End: 01-01-2025 Refill [facility] Start: 12-08-2024 End: 12-08-2024 Office outpatient visit 15 minutes Lizandro Harrison DO Work Phone: [facility] Comment on above: Acute non-recurrent maxillary sinusitis (Primary Dx) Start: 12-08-2024 End: 12-08-2024 ambulatory [facility] Start: 11-30-2024 End: 12-01-2024 Refill Lizandro Harrison DO Work Phone: [facility] Start: 11-09-2024 End: 11-09-2024 Refill Zeynep Alcocer JERONIMO [facility] Start: 09-20-2024 End: 09-20-2024 Refill Lizandro Harrison DO Work Phone: [facility] Start: 07-26-2024 End: 07-26-2024 Bamboo flowsheet Abby Griselda DO Work Phone: [facility] Start: 07-26-2024 End: 07-29-2024 Bamboo flowsheet Abby Griselda DO Work Phone: [facility] Start: 07-26-2024 End: 07-29-2024 Clinisync Result Encounter Abby Griselda DO Work Phone: [facility] Department Unsolicited Start: 07-26-2024 End: 07-26-2024 Patient encounter procedure Abby Valdiviao DO Work Phone: [facility] Work Phone: Start: 07-26-2024 End: 07-26-2024 Periodic preventive med est patient 18-39 yrs Abby Lamzio DO Work Phone: [facility] Comment on above: Well woman exam with routine gynecological exam; Weight loss counseling, encounter for; Insulin resistance Start: 07-26-2024 End: 07-26-2024 ambulatory ABBY VILLALOBOS Not Available Start: 02-15-2024 End: 02-15-2024 ambulatory [facility] Work Phone: Start: 02-15-2024 End: 02-15-2024 Patient encounter procedure [facility] Work Phone: Start: 12-09-2023 End: 12-09-2023 ambulatory GHULAM BRYANT Not Available Start: 10-23-2023 End: 10-24-2023 ambulatory [facility] Start: 10-23-2023 Encounter for genera l adult medical examination without abnormal findings [facility] Start: 10-23-2023 End: 10-23-2023 Patient encounter procedure Beata Funes SPECIAL EDUCATION BUS DRIVER-CRIME LAB TECHNICIAN Work Phone: [facility] Work Phone: Start: 10-23-2023 End: 10-23-2023 Periodic preventive med est patient 18-39 yrs Beata Funes SPECIAL EDUCATION BUS DRIVER-CRIME LAB TECHNICIAN Work Phone: [facility] Comment on above: Annual physical exam (Primary Dx); Morbid obesity due to excess calories (CMS-HCC); Mild intermittent asthma, unspecified whether complicated; Gastroesophageal reflux disease with esophagitis without hemorrhage; Acute back pain less than 4 weeks duration; Acquired unequal leg length Start: 07-10-2022 End: 07-10-[address] ABBY VILLALOBOS Facility: Start: 08-02-2021 End: 08-03-2021 ambulatory Lizandrosvetlana Montalvolong Facility:[facility] Procedures Date Procedure Procedure Detail Performing Clinician Start: 05-12-2025 Adult depression scr eening assessment Lizandro Harrison DO Work Phone: Start: 04-05-2025 Adult depression scr eening assessment Lizandro Harrison DO Work Phone: Start: 12-08-2024 Adult depression scr eening assessment Lizandro Harrison DO Work Phone: Start: 07-26-2024 IGP,APTIMA HPV,AGE GDLN Abby Valdiviao DO Work Phone: Start: 07-26-2024 Microscopic observat ion [Identifier] in Cervix by Cyto stain Abby Griselda DO Work Phone: Start: 07-26-2024 PAP TEST, EXTERNAL [facility] Start: 02-15-2024 Quick Strep (POC) Start: 07-10-2022 Microscopic observat ion [Identifier] in Cervix by Cyto stain Beata Funes SPECIAL EDUCATION BUS DRIVER-CRIME LAB TECHNICIAN Work Phone: Plan of Treatment Date Care Activity Detail Author Start: 09-10-2030 DTaP,Tdap and Td Vaccines (3 - Td or Tdap) DTaP,Tdap and Td Vaccines (3 - Td or Tdap) [facility] Start: 07-26-2027 Screening for malign ant neoplasm of cervix [facility] Start: 08-07-2026 End: 08-07-2026 Patient encounter procedure 08/07/2026 10:00 AM EDT Procedure Visit LANDRY ALVARENGA [address] [place] [address] Abby Villalobos DO [address] [place], [place] [id number] [facility] Start: 05-12-2026 Adult BMI Follow Up Plan Adult BMI Follow Up Plan [facility] Start: 05-12-2026 Adult BMI Screening Adult BMI Screen ing [facility] Start: 05-12-2026 Depression Screening Depression Scre ening [facility] Start: 05-12-2026 Tobacco Screening Tobacco Screening [facility] Start: 04-05-2026 Adult BMI Follow Up Plan Adult BMI Follow Up Plan [facility] Start: 04-05-2026 Adult BMI Screening Adult BMI Screen ing [facility] Start: 04-05-2026 Depression Screening Depression Scre ening [facility] Start: 04-05-2026 Tobacco Screening Tobacco Screening [facility] Start: 12-08-2025 Adult BMI Screening Adult BMI Screen ing [facility] Start: 12-08-2025 Depression Screening Depression Scre ening [facility] Start: 12-08-2025 Tobacco Screening Tobacco Screening [facility] Start: 07-31-2025 End: 07-31-2025 Patient encounter procedure [facility] Comment on above: Arrived Start: 07-10-2025 Screening for malign ant neoplasm of cervix [facility] Start: 06-13-2025 End: 06-13-2025 Patient encounter procedure 06/13/2025 4:00 PM EDT Office Visit [facility] [address] [place] [address] Lizandro Harrison, [address] [facility] [place] [address] [facility] Start: 06-12-2025 Influenza vaccination Influenza Vacc ine (#1) [facility] Start: 04-05-2025 End: 04-05-2026 XR Thumb - right Views X-ray finger thumb right minimum 2 views Imaging Routine Chronic pain of right thumb Expected: 04/05/2025, Expires: 04[facility]05[facility] Comment on above: Expected: 04/05/2025 , Expires: 04/05/2026 Start: 04-05-2025 End: 04-05-2026 XR Wrist - right 3 Views X-ray wrist right minimum 3 views Imaging Routine Right wrist pain Expected: 04/05/2025, Expires: 04/05/2026 [facility] Comment on above: Expected: 04/05/2025 , Expires: 04/05/2026 Start: 04-05-2025 End: 04-05-2025 Patient encounter procedure 04/05/2025 9:00 AM EDT Office Visit [facility] Internal Medicine - Family Medicine [address] [place] [address] Lizandro Harrison, [address] [place] [address] [place] [address] [facility] - Family [facility] Start: 01-25-2025 End: 01-25-2025 Patient encounter procedure 01/25/2025 10:00 AM EDT [facility] [address] [place] [address] Lizandro Harrison, [address] [place] [address] [facility] Start: 11-14-2024 End: 11-14-2024 Patient encounter procedure 11/14/2024 8:30 AM EST [facility] [address] [place] [address] Lizandro Harrison DO [address] [place] [address] [place] [address] [facility] Internal Medicine - Family Medicine Start: 10-23-2024 Adult BMI Follow Up Plan Adult BMI Follow Up Plan [facility] Start: 10-23-2024 Adult BMI Screening Adult BMI Screen ing [facility] Start: 10-23-2024 Tobacco Screening Tobacco Screening [facility] Start: 07-26-2024 End: 07-26-2024 Patient encounter procedure 07/26/2024 8:30 AM EDT Office Visit [facility] [address] [place] [address] [place] [address] Abby Villalobos, DO [address] [place] [address] Arrived [facility] Comment on above: Arrived Start: 06-12-2024 Influenza vaccination Influenza Vacc ine (#1) [facility] Start: 04-23-2024 Tobacco Screening Tobacco Screening [facility] Start: 2017 Screening for malign ant neoplasm of cervix HPV/Cotest [facility] Start: 2005 Adult BMI Follow Up Plan Adult BMI Follow Up Plan [facility] Start: 1999 Depression Screening Depression Scre ening [facility] End: 10-23-2024 Comprehensive metabolic 2000 panel - Serum or Plasma Comprehensive metabolic panel Lab Routine Annual physical exam 1 Occurrences starting 10/23/2023 until 10/23/2024 [facility] Work Phone: Comment on above: 1 Occurrences starti ng 10/23/2023 until 10/23/2024 Comprehensive metabo lic 2000 panel - Serum or Plasma Comprehensive metabolic panel Lab Routine Annual physical exam 10/23/2023 7:03 PM EST [facility] End: 04-05-2026 Comprehensive metabolic 2000 panel - Serum or Plasma Comprehensive metabolic panel Lab Routine Well adult exam 1 Occurrences starting 04/05/2025 until 04/05/2026 [facility] Comment on above: 1 Occurrences starti ng 04/05/2025 until 04/05/2026 Comprehensive metabo lic 2000 panel - Serum or Plasma Comprehensive metabolic panel Lab Routine Well adult exam 04/05/2025 9:48 AM EDT [facility] Cytology Cervical or vaginal smear or scraping study Pap Smear Pathology and Cytology Routine Well woman exam with routine gynecological exam Ordered: 07/26/2024 [facility] [employer] Work Phone: Comment on above: Ordered: 07/26/2024 Cytology Cervical or vaginal smear or scraping study Pap Smear Pathology and Cytology Routine Well woman exam with routine gynecological exam Ordered: 07/31/2025 [facility] Work Phone: Comment on above: Ordered: 07/31/2025 Human papilloma viru s DNA [Presence] in Unspecified specimen by Probe with amplification HPV DNA probe, amplified Microbiology Routine Well woman exam with routine gynecological exam Ordered: 07/26/2024 [facility] Comment on above: Ordered: 07/26/2024 Human papilloma viru s DNA [Presence] in Unspecified specimen by Probe with amplification HPV DNA probe, amplified Microbiology Routine Well woman exam with routine gynecological exam Ordered: 07/31/2025 [facility] Comment on above: Ordered: 07/31/2025 Lipid 1996 panel - S raysa or Plasma Lipid profile Lab Routine Annual physical exam 10/23/2023 7:03 PM EST [email or web address] End: 10-23-2024 Lipid panel Lipid panel Lab Routine Annual physical exam 1 Occurrences starting 10/23/2023 until 10/23/2024 [facility] Comment on above: 1 Occurrences starti ng 10/23/2023 until 10/23/2024 End: 04-05-2026 Lipid panel Lipid panel Lab Routine Well adult exam 1 Occurrences starting 04/05/2025 until 04/05/2026 [facility] Comment on above: 1 Occurrences starti ng 04/05/2025 until 04/05/2026 Lipid panel Lipid panel Lab Routine Well adult exam 04/05/2025 9:48 AM EDT [facility] End: 04-05-2026 TSH with Reflex TSH with Reflex Lab Routine Obesity, morbid ([facility]) 1 Occurrences starting 04/05/2025 until 04/05/2026 [facility] Comment on above: 1 Occurrences starti ng 04/05/2025 until 04/05/2026 TSH with Reflex TSH with Reflex Lab Routine Obesity, morbid ([facility]-HCC) 04/05/2025 9:48 AM EDT [facility] Immunizations Immunization Date Immunization Notes Care Provider Genaro ayala 09-10-2020 tetanus toxoid, redu aren diphtheria toxoid, and acellular pertussis vaccine, adsorbed Beata Marin SPECIAL EDUCATION BUS DRIVER-CRIME LAB TECHNICIAN [facility] 01-22-2009 tetanus toxoid, redu aren diphtheria toxoid, and acellular pertussis vaccine, adsorbed Beata Marin SPECIAL EDUCATION BUS DRIVER-CRIME LAB TECHNICIAN Work Phone: [facility] Payers Date Payer Category Payer Medicaid HMO [facility] MEDICAID [id number] 2022 Private Health Insurance [id number] 2021 Commercial Managed Care - POS [id number] 2021 Managed Care HMO (unspecified) [employer] [id number] 2021 Private Health Insurance [id number] 2020 Self-pay [id number] 2020 Auto Insurance AUTO INSURANCE [id number] 1987 Unknown [id number] [id number] 1987 Unknown [id number]. 2.1286 1987 Unknown [id number]. [id number] 1987 Unknown [id number]. 2.1259 1987 Unknown [id number]. 2.1286 1987 Unknown [id number] [id number]. 2.1286 1987 Unknown [id number] [id number]. 2.1286 1987 Unknown [id number] [id number]. 2.1286 1987 Unknown [id number] [id number] 1959 Private Health Insurance [id number] 1959 Unknown [id number] Unknown [place] BC/BS [id number] Unknown [id number] Unknown [id number] [id number] Social History Date Type Detail Facility Tobacco smoking stat [facility] Unknown if ever smoked [facility] Work Phone: Start: 1985 Sex Assigned At Female F [facility] Start: 12-09-2023 End: 02-15-2024 Tobacco smoking status NHIS Never smoked tobacco (finding) [facility] Start: 08-01-2022 End: 12-09-2023 Tobacco use and exposure Smokeless tobacco non-user [facility] Start: 12-09-2023 End: 07-31-2025 Alcoholic beverage intake Ex-drinker (finding) [facility] Start: 12-09-2023 End: 07-31-2025 Alcoholic beverage intake [facility] Start: 12-09-2023 End: 07-31-2025 Tobacco use panel [facility] Start: 1985 Sex assigned at Not on file P [facility] Start: 10-23-2023 End: 04-05-2025 Alcoholic beverage intake Current drinker of alcohol (finding) [facility] Start: 12-24-2022 Childcare Unknown [facility] Start: 11-18-2019 Alcohol Comment rare [facility] Start: 05-17-2015 Sex Female (finding) [facility] How hard is it for y ou to pay for the very basics like food, housing, medical care, and heating Not very hard [facility] Has the electric, [employer], oil, or water company threatened to shut off services in your home in past 12Mo No [facility] Are you now , , , , never or living with a partner? [facility] How often to you hav e a drink containing alcohol? Monthly or less [facility] How many standard drinks containing alcohol do you have on a typical day? 1 or 2 [facility] How often do you hav e 6 or more drinks on 1 occasion? Never [facility] Do you feel stress - tense, restless, nervous, or anxious, or unable to sleep at night because your mind is troubled all the time - these days [OSQ] Only a little [facility] Functional Status Date Assessment Result Facility 04-05-2025 Total score [AUDIT-C] 1 04/05/20 9:26 AM Lizandro Goldstein, DO [facility] Clinical Notes 10-23-2023 to 07-31-2025 Tracycassy Ang, PIPE SETTER - 07/31/2025 9:00 AM EDSarah Rogers Montalvogus, DO - 05/12/2025 9:20 AM EDSarah Rogers Montalvogus, DO - 04/05/2025 9:00 AM EDTTelephone Encounter - Vanna Pina, PAPER CUP MACHINE TENDER - 01/03/2025 10:48 AM EDT Note Date & Type Note Facility 07-31-2025 History of Presen t illness Narrative Reason for Appointment: Patient ID: Iveth Cardona is a 40 y.o. 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 Exam conducted with a scientific programmer analyst present. Vitals: Estimated body mass index is 42.87 kg/m as calculated from the following: Height as [...] by Tracy Ang LPN on behalf of: Abby Villalobos DO documented in this encounter [facility] 05-12-2025 History of Presen t illness Narrative Subjective Patient ID: Allyson Cardona is a 40 y.o. female. Allyson presents today for a weight recheck. She is taking phentermine and does not have any side effects. She feels it is working to curb her appetite. She has cut back on portion sizes. It tells her she is full before she finishes a meal. She was busy walking last week as she was on vacation but does not do any formal walking when she is working. She tried cutting back on omeprazole by not taking it for a few days in her heartburn returned. The following portions of the patient's history were reviewed and updated as appropriate: allergies, current medications, past family history, past medical history, past social history, past surgical history, problem list, and medication reconciliation was completed including current medication and post discharge medication. Review of Systems Constitutional: Positive for appetite change. Respiratory: Negative. Cardiovascular: Negative. Neurological: Negative. Psychiatric/Behavioral: Negative. Objective Physical Exam Vitals reviewed. Constitutional: Appearance: She is morbidly obese. Cardiovascular: Rate and Rhythm: Normal rate and regular rhythm. Heart sounds: Normal heart sounds. No murmur heard. Pulmonary: Effort: Pulmonary effort is normal. No respiratory distress. Breath sounds: Normal breath sounds. No wheezing, rhonchi or rales. Neurological: General: No focal deficit present. Mental Status: She is alert and oriented to person, place, and time. Psychiatric: Attention and Perception: Attention normal. Mood and Affect: Mood and affect normal. Speech: Speech normal. Behavior: Behavior normal. Behavior is cooperative. Thought Content: Thought content normal. Cognition and Memory: Cognition normal. Judgment: Judgment normal. Assessment/Plan Allyson was seen today for weight check. Diagnoses and all orders for this visit: Morbid obesity ([facility]) - phentermine 15 MG capsule; Take 1 capsule (15 mg total) by mouth every morning. She only lost 2 lb in the last month. She was encouraged to incorporate some sort formal exercise like a brisk walk for 10 minutes daily. She feels she can do that. She is using high risk medication with benefit. She does not have any side effects. We will continue it for another month. Patient noted to have elevated BMI and the following intervention(s) were applied: encouragement to exercise and prescribed diet education. Chronic gastritis without bleeding, unspecified gastritis type She went a few days without omeprazole in her heartburn returned. Recommend that she try taking it every other day see how she does with that. documented in this encounter Check-Cap 04-05-2025 History of Presen t illness Narrative Subjective Patient ID: Allyson Cardona is a 40 y.o. female. Allyson presents for her annual wellness exam. She is taking her medications. She does not have any side effects. She has occasional issues with her asthma. She does have shortness a breath and wheezing a couple times a year. It is mostly when it is very humid outside. Tends to be more in the evening. Her stomach has been good. She occasionally has heartburn which she needs to take an xmcm-kjv-lybfljk antacid for. It is usually with Burmese or spicy foods. She is taking omeprazole 40 mg daily. She did have an EGD done which did not show any Dao's esophagus. She is taking sertraline for depression. She tried cutting back on it but then had symptoms the 1st day she stopped it. She would like to consider trying to stop it. She was told she would have to wean off of it. She is having pain in her right thumb and wrist area. She has had carpal tunnel surgery on it. There was no numbness or tingling. The pain is constant. It is an achy type of pain. She takes hney-wci-azntcgp medication as needed when it bothers her. 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 She is also concerned about her weight. She tried phentermine in the past but it caused mood swings. It was after the of her child. She is on metformin but that has not been helping. She is interested in the new weekly injectables. The following portions of the patient's history [...] Endocrine: Negative. Genitourinary: Negative. Musculoskeletal: Positive for arthralgias. Skin: Negative. Allergic/Immunologic: Negative. Neurological: Negative. Psychiatric/Behavioral: Negative. Objective Physical Exam Vitals reviewed. Constitutional: General: She is not in acute distress. Appearance: She is morbidly obese. She is not ill-appearing. HENT: Head: Normocephalic. Right Ear: Tympanic membrane, ear canal and external ear normal. Left Ear: Tympanic membrane, ear canal and external ear normal. Nose: Nose normal. Mouth/Throat: Lips: [place]. Mouth: Mucous membranes are moist. Dentition: Normal dentition. Pharynx: Oropharynx is clear. Eyes: General: No scleral icterus. Extraocular Movements: Extraocular movements intact. Conjunctiva/sclera: Conjunctivae normal. Cardiovascular: Rate and Rhythm: Normal rate and regular rhythm. Pulses: Normal pulses. Heart sounds: Normal heart sounds. No murmur heard. Pulmonary: Effort: Pulmonary effort is normal. No respiratory distress. Breath sounds: Normal breath sounds. No wheezing, rhonchi or rales. Abdominal: General: Bowel sounds are normal. There is no distension. Palpations: Abdomen is soft. There is no mass. Tenderness: There is no abdominal tenderness. There is no guarding or rebound. Hernia: No hernia is present. Musculoskeletal: General: Tenderness present. Right wrist: Tenderness present. No swelling, deformity, effusion, lacerations, bony tenderness, snuff box tenderness or crepitus. Normal range of motion. Normal pulse. Right hand: Tenderness present. No swelling, deformity or lacerations. Normal pulse. Cervical back: Neck supple. Right lower leg: No edema. Left lower leg: No edema. Comments: Tenderness diffusely over volar aspect of wrist and right thumb Lymphadenopathy: Cervical: No cervical adenopathy. Skin: General: Skin is warm and dry. Neurological: General: No focal deficit present. Mental Status: She is alert and oriented to person, place, and time. Cranial Nerves: Cranial nerves 2-12 are intact. Sensory: Sensation is intact. Motor: Motor function is intact. Gait: Gait is intact. Comments: Negative Tinel's sign over right carpal tunnel Psychiatric: Attention and Perception: Attention and perception normal. Mood and Affect: Mood and affect normal. Speech: Speech normal. Behavior: Behavior normal. Behavior is cooperative. Thought Content: Thought content normal. Cognition and Memory: Cognition and memory normal. Judgment: Judgment normal. Assessment/Plan Allyson was seen today for well person. Diagnoses and all orders for this visit: Well adult exam - Lipid panel; Future - Comprehensive metabolic panel; Future - Comprehensive metabolic panel - Lipid panel Health maintenance discussed. Check CMP and lipids Chronic pain of right thumb - X-ray finger thumb right minimum 2 views; Future Check x-ray of right thumb. Pain etiology is unclear. Chronic gastritis without bleeding, unspecified gastritis type We discussed the risks and benefits of daily omeprazole use. We should try to cut back on it if possible. She will try to cut back to every other day. She can use famotidine on the off days if she needs it Mild intermittent asthma, unspecified whether complicated Recommend air supra instead of plain albuterol and she agrees. Can use 2 puffs every 4 hours as needed. Rinse mouth out after use. Allergic rhinitis Stable. Continue current regimen Obesity, morbid ([facility]) - TSH with Reflex; Future - TSH with Reflex She is obese. She would benefit from weight loss. Check TSH Patient noted to have elevated BMI and the following intervention(s) were applied: encouragement to exercise and prescribed diet education. We discussed medications as well. She will check into her benefits. She would like hi the weekly injectables so we will see if that is covered. If not then she may consider low-dose phentermine. She did have problems when she took a high dose. It caused mood swings. Persistent depressive disorder She is doing well on medication. She would like to cut back. She can try taking 1/2 of a tablet of sertraline for several weeks and then take it every other day for a couple weeks and then try to stop it. Other orders - albuterol-budesonide (AIRSUPRA) 90-80 mcg/actuation HFA aerosol inhaler; Inhale 2 puffs every 4 (four) hours as needed (SOB, wheeze). documented in this encounter [facility] 01-03-2025 Miscellaneous Notes Patient is experiencing a sinus infection again and wanted to know if you would send something in? I will send in a burst of steroids but would need an appointment if she thinks she needs an antibiotic Going to try the steroids first documented in this encounter [facility] 01-03-2025 Telephone encounter Note Patient is experiencing a sinus infection again and wanted to know if you would send something in? [facility] 01-03-2025 Telephone encounter Note I will send in a burst of steroids but would need an appointment if she thinks she needs an antibiotic [facility] 01-03-2025 Telephone encounter Note Going to try the steroids first [facility] 12-08-2024 History of Presen t illness Narrative Subjective Patient ID: Allyson Cardona is a 39 y.o. female. Allyson presents today for illness visit. She started getting sick 2 weeks ago. She has been trying OTC mucinex and phu-seltzer. She is having sinus congestion, pressure around her left ear and eat and down by jaw. She was getting better but is feeling worse the last couple days. She has felt feverish and chilled. She has a cough. She tested negative for Covid. She works from home and no one else is sick. She is eating and taking fluids ok. She denies CP or SOB. Sinus Problem This is a new problem. The current episode started 1 to 4 weeks ago. The problem has been gradually worsening since onset. The maximum temperature recorded prior to her arrival was 100.4 - 100.9 F (didn't take temp but felt feverish). The pain is mild. Associated symptoms include congestion, coughing, ear pain and sinus pressure. Pertinent negatives include no diaphoresis or shortness of breath. Past treatments include nasal decongestants. The treatment provided mild relief. The following portions of the patient's history were reviewed and updated as appropriate: allergies, current medications, past family history, past medical history, past social history, past surgical history, problem list, and medication reconciliation was completed including current medication and post discharge medication. Review of Systems Constitutional: Negative for diaphoresis. HENT: Positive for congestion, ear pain and sinus pressure. Respiratory: Positive for cough. Negative for shortness of breath. Objective Physical Exam Vitals reviewed. Constitutional: General: She is not in acute distress. Appearance: She is not ill-appearing. HENT: Head: Normocephalic. Right Ear: Tympanic membrane, ear canal and external ear normal. Left Ear: Tympanic membrane, ear canal and external ear normal. Nose: Mucosal edema, congestion and rhinorrhea present. Rhinorrhea is purulent. Right Nostril: No occlusion. Left Nostril: Occlusion present. Right Turbinates: Not enlarged, swollen or pale. Left Turbinates: Enlarged and swollen. Not pale. Left Sinus: Maxillary sinus tenderness and frontal sinus tenderness present. Mouth/Throat: Lips: [place]. Mouth: Mucous membranes are moist. Pharynx: Oropharynx is clear. Uvula midline. No pharyngeal swelling, oropharyngeal exudate, posterior oropharyngeal erythema, uvula swelling or postnasal drip. Cardiovascular: Rate and Rhythm: Normal rate and regular rhythm. Pulses: Normal pulses. Heart sounds: Normal heart sounds. No murmur heard. Pulmonary: Effort: Pulmonary effort is normal. No respiratory distress. Breath sounds: Normal breath sounds. No wheezing, rhonchi or rales. Abdominal: General: Bowel sounds are normal. Palpations: Abdomen is soft. Tenderness: There is no abdominal tenderness. Musculoskeletal: Cervical back: Neck supple. Lymphadenopathy: Cervical: No cervical adenopathy. Neurological: General: No focal deficit present. Mental Status: She is alert and oriented to person, place, and time. Psychiatric: Mood and Affect: Mood normal. Behavior: Behavior normal. Thought Content: Thought content normal. Judgment: Judgment normal. Assessment/Plan Allyson was seen today for sinus problem. Diagnoses and all orders for this visit: Acute non-recurrent maxillary sinusitis Patient has been sick for 2 weeks and getting worse with fevers and purulent drainage. Will treat with amoxil 875mg BID x 10 days. Can try Afrin NS 2 sprays BID x 5 days and fluticasone NS 2 sprays daily. Other orders - amoxicillin (AMOXIL) 875 mg tablet; Take 1 tablet (875 mg total) by mouth in the morning and 1 tablet (875 mg total) before bedtime. Do all this for 10 days. - fluticasone propionate (FLONASE) 50 mcg/actuation nasal spray; Administer 2 sprays into each nostril in the morning. - sertraline (ZOLOFT) 50 mg tablet; Take 1 tablet (50 mg total) by mouth in the morning. documented in this encounter [facility] 09-20-2024 Miscellaneous Notes Rx sent in. She is due for a wellness after October 23 documented in this encounter [facility] 09-20-2024 Telephone encounter Note Rx sent in. She is due for a wellness after October 23 [facility] [facility] 07-26-2024 History of Presen t illness Narrative Reason for Appointment: Patient ID: Iveth Cardona is a 39 y.o. female who presents for Well Women Visit Patient presents today for Annual Exam. MEDICATIONS Current Outpatient Medications Medication Instructions albuterol HFA 90 mcg/act inhaler 2 puffs, Inhalation, Every 6 hours PRN cetirizine (ZYRTEC) 10 mg, Oral, Daily RT ibuprofen 800 mg, Oral, Every 8 hours meclizine (ANTIVERT) 25 mg, Oral, 3 times daily PRN omeprazole (PriLOSEC) [address] capsule 1 capsule, Oral, Every morning sertraline (Zoloft) 50 MG tablet 1 tablet, Oral, Nightly ALLERGIES No Known Allergies PROBLEMS Active Ambulatory Problems Diagnosis Date Noted No Active Ambulatory Problems Resolved Ambulatory Problems Diagnosis Date Noted No Resolved Ambulatory Problems Past Medical History: Diagnosis Date Asthma during ([facility]) [facility] current use of systemic steroids HISTORY PAST MEDICAL HISTORY SOCIAL HISTORY Past Medical History: Diagnosis Date Asthma during (CMS/HCC) [facility] current use of systemic steroids alf use of steroids Social History Tobacco Use [...] nursing note reviewed. Exam conducted with a scientific programmer analyst present. Vitals: Estimated body mass index is 45.02 kg/m as calculated from the following: Height as of 12/09/23: 4' 10 . Weight as of this encounter: 215 lb 6.4 oz. BP: 116/80 No LMP recorded. ASSESSMENT & PLAN ICD-10-CM 1. Well woman exam with routine gynecological exam Z01.419 Pap Smear HPV DNA probe, amplified Annual Exam: Patient presents today for an annual exam. Patient states she is doing well and has complaints of wanting weight loss medication cannot tolerate adipex and stated does not want weekly injections. Rx for metformin faxed to pharmacy- advised to increase protein- start to work out. Pap was obtained without difficulty. Orders Placed This Encounter Procedures HPV DNA probe, amplified Follow Up: Patient is to return in one year for annual unless needed otherwise. Documented by Maria Dolores Salamanca LPN on behalf of: Ariella Cain PA-C documented in this encounter [facility] 10-23-2023 History of Presen t illness Narrative Subjective Patient ID: Allyson Cardona [...] Future Morbid obesity due to excess calories ([facility]-HCC) Mild intermittent asthma, unspecified whether complicated [...] Merritt 10/23/23 1201 documented in this encounter [facility] Evaluation note No assessment inform ation available [facility] Work Phone: Evaluation note Diagnosis Onset Date Sore throat noneactive [facility] Work Phone: Evaluation note* Diagnosis Well woman exam with routine gynecological exam Routine gynecological examination Weight loss counseling, encounter for Insulin resistance Other abnormal glucose documented in this encounter [facility] HealthcareEvaluation [facility]* Diagnosis Annual physical exam- Primary Routine general medical examination at a health care facility Morbid obesity due to excess calories ([facility]) Mild intermittent asthma, unspecified whether complicated Gastroesophageal reflux disease with esophagitis without hemorrhage Acute back pain less than 4 weeks duration Acquired unequal leg length Unequal leg length (acquired) documented in this encounter [facility]* Diagnosis Acute non-recurrent maxillary sinusitis- Primary documented in this encounter [facility]* Diagnosis Well adult exam- Primary Routine general medical examination at a health care facility Chronic pain of right thumb Right wrist drop Chronic gastritis without bleeding, unspecified gastritis type Mild intermittent asthma, unspecified whether complicated Allergic rhinitis Obesity, morbid ([facility]) Morbid obesity Persistent depressive disorder Right wrist pain Pain in joint, forearm documented in this encounter [facility]* Diagnosis Obesity, morbid ([facility])- Primary Morbid obesity documented in this encounter [facility]* Diagnosis Morbid obesity ([facility])- Primary Morbid obesity Chronic gastritis without bleeding, unspecified gastritis type documented in this encounter [facility] System[facility] note* Diagnosis Well woman exam with routine gynecological exam Routine gynecological examination Weight loss counseling, encounter for Insulin resistance Other abnormal glucose [facility]ructionsNot on filedocumented in this encounterPro[facility] SystemInstructionsNot on filedocumented in this encounterC[facility] SystemInstructionsNot on filedocumented in this encounterCrystal [facility] SystemInstructionsNot on filedocumented in this encounterCrystal [facility] InstructionsNot on filedocumented in this encounterCrystal [facility] InstructionsNot on filedocumented in this encounterCrystal [facility] InstructionsNot on filedocumented in this encounterCrystal [facility] InstructionsNot on filedocumented in this encounterCrystal [facility] InstructionsNot on filedocumented in this encounterCrystal Clinic Orthopedic Center SystemReason for referral (narrative)* Consultation (Routine) - Pending Review Specialty Diagnoses / Procedures Referred By Anna plascencia Referred To Contact Podiatry Diagnoses Acquired unequal leg length Beata Funes APRN-FNP [address] [place] [address] Ghulam Bryant DPM [address] [place] [address] Referral ID Status Reason Start Date Expiration Date Visits Requested Visits Authorized [id number] Pending Review Specialty Services Required 10/23/2023 10/22/2024 1 1 [facility] Summary Purpose Family History Relationship Condition Age [...] section and content) DATE CREATED AUTHOR 08/21/2020 [facility] DATE CREATED AUTHOR AUTHOR'S ORGANIZ ATION 07/21/2022 [facility] DATE CREATED AUTHOR AUTHOR'S ORGANIZ ATION 06/13/2023 [facility] DATE CREATED AUTHOR AUTHOR'S ORGANIZ ATION 10/25/2023 [facility] DATE CREATED AUTHOR AUTHOR'S ORGANIZ ATION 07/28/2024 [facility] DATE CREATED AUTHOR AUTHOR'S ORGANIZ ATION 05/06/2025 [facility] DATE CREATED AUTHOR AUTHOR'S ORGANIZ ATION 05/14/2025 [facility] Goals (unrecognized section and content) Goals may be documented in a n alternate sectionGoals may be documented in an alternate sectionNot on filedocumented as of this encounterNot on filedocumented as of this encounterNot on filedocumented as of this encounterNot on filedocumented as of this encounterNot on filedocumented as of this encounterNot on filedocumented as of this encounterNot on filedocumented as of this encounterNot on filedocumented as of this encounterNot on filedocumented as of this encounterNot on filedocumented as of this encounterNot on filedocumented as of this encounterNot on filedocumented as of this encounterNot on filedocumented as of this encounterNot on filedocumented as of this encounterNot on filedocumented as of this encounter Care Teams (unrecognized sec tion and content) Team Status: Active Member Role Status Dates Lizandro Harrison DO Primary Care Provider Active Team Status: Inactive Member Role Status Dates Lizandro Harrison DO Primary Care Provider Active Start: February 15, 2024 End: February 15, 2024 Jennie Mars APRN Attending Provider Active S tart: February 15, 2024 End: February 15, 2024 Transit Survey Worker Relationship Specialty Start Date End Date Lizandro Harrison MD [address], [place] [address] PCP - General 05/29/23 Transit Survey Worker Relationship Specialty Start Date End Date Lizandro Harrison MD [address] [place] [address] PCP - General 05/29/23 Transit Survey Worker Relationship Specialty Start Date End Date Lizandro Harrison MD [address] [place] [address] PCP - General 05/29/23 Transit Survey Worker Relationship Specialty Start Date End Date Lizandro Harrison DO [address] [place] [address] PCP - General Family Medicine 02/10/17 Transit Survey Worker Relationship Specialty Start Date End Date Lizandro Harrison DO [address] [place] [address] PCP - General Family Medicine 02/10/17 Transit Survey Worker Relationship Specialty Start Date End Date Lizandro Harrison DO [address] [place] [address] PCP - General Family Medicine 02/10/17 Transit Survey Worker Relationship Specialty Start Date End Date Lizandro Harrison DO [address] [place] [address] PCP - General Family Medicine 02/10/17 Transit Survey Worker Relationship Specialty Start Date End Date Lizandro Harrison DO [address] [place] [address] PCP - General Family Medicine 02/10/17 Transit Survey Worker Relationship Specialty Start Date End Date SelvinseraLizandro martinez DO [address] [place] [address] PCP - General Family Medicine 02/10/17 Transit Survey Worker Relationship Specialty Start Date End Date SelvinseraLizandro martinez DO [address] [place] [address] PCP - General Family Medicine 02/10/17 Transit Survey Worker Relationship Specialty Start Date End Date ChristyLizandro DO [address] [place] [address] PCP - General Family Medicine 02/10/17 Transit Survey Worker Relationship Specialty Start Date End Date SelvinseraLizandro martinez DO [address] [place] [address] PCP - General Family Medicine 02/10/17 Transit Survey Worker Relationship Specialty Start Date End Date ChristyLizandro DO [address] [place] [address] PCP - General Family Medicine 02/10/17 Transit Survey Worker Relationship Specialty Start Date End Date ChristyLizandro DO [address] [place] [address] PCP - General Family Medicine 02/10/17 Transit Survey Worker Relationship Specialty Start Date End Date Lizandro Harrison DO [address], [place] [address] PCP - General Family [facility] 02/10/17 Transit Survey Worker Relationship Specialty Start Date End Date SelvinLizandro weber DO [address] [place] [address] PCP - General Family [facility] 02/10/17 Transit Survey Worker Relationship Specialty Start Date End Date Lizandro Harrison MD PCP - General 05/29/23 Transit Survey Worker Relationship Specialty Start Date End Date Lizandro Harrison MD PCP - General 05/29/23 Reason for Visit (unrecogniz ed section and content) Reason Comments Well Women Visit Reason Onset Date Comments Med Refill 11/09/2024 Reason Comments well person Reason Onset Date Comments Med Refill 09/20/2024 Reason Comments Med Change Request Reason Comments Sinus Problem Reason Comments Med Refill Reason Comments well person Reason Comments Weight Check Feeling good. Xray o f right thumb - PMH last week FOR RECORDS PERTAINING TO PATIENTS WHO ARE [...] BE BASED ON THE PRIMARY CLINICAL RECORDS. [employer] [facility]. provides no warranty or guarantee of the accuracy or completeness of information in this document.
--- OUTSIDE RECORDS SUMMARY | 2025-07-31 13:01 | XMS_ITS | Clinical Summary ---
Author Organization [facility] Healthcare Address [address] [place] [address] Care Team Providers Care Compensation Analyst Name Role Phone Lizandro Harrison MD Primary Care Provider [phone] Allergies No known active allergies Medications albuterol HFA 90 mcg/act inhaler Inhale 2 puffs every 6 (six) hours if needed for wheezing. 07/02/20 22 Active cetirizine (ZyrTEC) 10 MG chewable tablet Chew 10 mg in the morning. Active ibuprofen 800 MG tablet Take 800 mg by mouth every 8 (eight) hours. 05/26/20 23 Active meclizine (Antivert) 25 MG tablet Take 25 mg by mouth 3 (three) times a day as needed for dizziness. 10/10/20 22 Active omeprazole (PriLOSEC) [address] capsule Take 1 capsule by mouth in the morning. 04/27/20 23 Active sertraline (Zoloft) 50 MG tablet Take 1 tablet by mouth at bedtime. 03/01/20 23 Active norethindrone-eth inyl estradiol-iron (Lo Loestrin Fe) 1 MG-10 MCG / 10 MCG tabletIndications :Encounter for initial prescription of contraceptive pills Take 1 tablet by mouth Daily for 28 days Take 1 tablet by mouth daily 28 tablet 11 12/22/19 25 Active Additional Information Patient not taking.Reported on 07/31/2025 metFORMIN XR (Glucophage-XR) 500 MG 24 hr tabletIndications :Weight loss counseling, encounter for,Insulin resistance Take 1 tablet (500 mg) by mouth in the evening. Take with meals Do not crush, chew, or split. 90 tablet 3 07/31/20 25 026 Active metFORMIN XR (Glucophage-XR) 500 MG 24 hr tabletIndications :Weight loss counseling, encounter for,Insulin resistance Take 1 tablet (500 mg) by mouth in the evening. Take with meals Do not crush, chew, or split. 90 tablet 3 12/13/19 25 025 Discontin ued(Reord er) Encounters Date Type Department Care Team Description 07/31/2025 9:00 AM EDT Office Visit [facility] [address] [place] [address] Graham Villalobos DO Well woman exam with routine gynecological exam; Weight loss counseling, encounter for; Insulin resistance 07/31/2025 Bamboo flowsheet [facility] [address] [place] [address] Graham Villalobos DO from Last 3 Months Family History Medical History Relation Name Comments Asthma Father Wyatt Diabetes Maternal Grandmother Nataliia Diabetes Paternal Grandmother Pat Relation Name Status Comments Father Wyatt Alive Maternal Grandfather Maternal Grandmother Nataliia Mother Alive Paternal Grandfather Paternal Grandmother Pat Social History Tobacco Use Types Packs/Day Years Used Date Smoking Tobacco: Never Smokeless Tobacco: Never Tobacco Cessation:Counseling Given: Not Answered Alcohol Use Standard Drinks/Week Comments Not Currently 1 (1 standard drink = 0.6 oz pur e alcohol) Comments Unknown Sex and Gender Information Value Date Recorded Sex Assigned at Not on file Legal Sex Female 11:06 PM EDT Gender Identity Not on file Sexual Orientation Not on file Last Filed Vital Signs Vital Sign Reading Time Taken Comments Blood Pressure 120/82 07/31/2025 8:59 AM EDT Pulse - - Temperature - - Respiratory Rate - - Oxygen Saturation - - Inhaled Oxygen Concentration - - Weight 93 kg (205 lb 1.9 oz) 07/31/2025 8:59 AM EDT Height 147.3 cm (4' 10 ) 12/09/2023 9:02 AM EST Body Mass Index 42.87 12/09/2023 9:02 AM EST Plan of Treatment Upcoming Encounters Date Type Department Care Team (Late st Contact Info) Description 08/07/2026 10:00 AM EDT Procedure Visit [facility] [address] [place] [address] Graham Villalobos DO [address] [place] [address] Health Maintenance Due Date Last Done Comments HPV/Cotest 2017 Influenza Vaccine (#1) 2025 Cervical Cancer Screening 07/26/2027 Pap Smear 07/26/2027 07/26/2024, 07/10/2022 Procedures Procedure Name Priority Date/Time Associated Diagnosis Comments PAP TEST, EXTERNAL Routine 07/26/2024 12:00 AM EDT from Last 3 Months or Most Recently Relevant to Health Maintenance Results * PAP TEST, EXTERNAL (07/26/2024 12:00 AM EDT) Griselda Nurse [facility] CYTOLOGY ORDERABLES Final Result EXTERNAL LAB from Last 3 Months or Most Recently Relevant to Health [id number] Care Teams Compensation Analyst Relationship Specialty Start Date End Date Lizandro Harrison MD PCP - General 05/29/23
--- OUTSIDE RECORDS SUMMARY | 2025-07-31 13:01 | XMS_ITS | Encounter Summary ---
Author Organization [facility] Address [address] [facility] [place] [address] Care Team Providers Care Nursing Home Administrator Name Role Phone Lizandro Harrison MD Primary Care Provider Encounter Details Date Type Department Care Team ([facility] Contact Info) Description 07/31/2025 Bamboo flowsheet [facility] [address] [place] [address] [place] [id number] Graham Villalobos DO [address] [place] [address] [place] [address] Social History Tobacco Use Types Packs/Day Years [...] as of this encounter Plan of Treatment Upcoming Encounters Date Type Department Care Team ([facility] Contact Info) Description 08/07/2026 10:00 AM EDT Procedure [facility] [address] [facility] [address] Graham Villalobos DO [address] [place] [id number] documented as of this encounter Visit Diagnoses Not on filedocumented in this encounter Care Teams Nursing Home Administrator Relationship Specialty Start Date End Date Lizandro Harrison MD PCP - General 05/29/23 documented as of this encounter
--- OUTSIDE RECORDS SUMMARY | 2025-07-31 13:01 | XMS_ITS | Encounter Summary ---
Author Organization [employer] Address [id number] [address] [place] [address] Care Team Providers Care Motor Scooter Repairer Name Role Phone Lizandro Harrison DO Primary Care Provider + [phone] Encounter Details Date Type Department Care Team (Late st Contact Info) Description 08/26/2023 Orders Only [facility] - Family Medicine [address] [place] [id number] External, Scanning Provider Social History Tobacco Use Types Packs/Day Years [...] on filedocumented in this encounter Care Teams Motor Scooter Repairer Relationship Specialty Start Date End Date Lizandro Harrison DO [address] [place] [address] PCP - General Family Medicine 02/10/17 documented as of this encounter
--- OUTSIDE RECORDS SUMMARY | 2025-07-31 13:01 | XMS_ITS | Encounter Summary ---
Author Organization [employer] Address [id number] [address] [place] [address] Care Team Providers Care Treasury Assistant Name Role Phone Lizandro Harrison DO Primary Care Provider + [phone] Reason for Visit * Reason Comments Med Refill Encounter Details Date Type Department Care Team (Late st Contact Info) Description 10/27/2022 Refill [facility] - Family Medicine [address] [place] [address] Beata Funes, TIMBER DEADENER-GENERAL HOUSE WORKER [address] [place] [address] Social History Tobacco Use Types Packs/Day Years [...] on filedocumented in this encounter Care Teams Treasury Assistant Relationship Specialty Start Date End Date Lizandro Harrison DO [address], [facility] [place], [place] [address] PCP - General Family Medicine 02/10/17 documented as of this encounter
--- OUTSIDE RECORDS SUMMARY | 2025-07-31 13:01 | XMS_ITS | Encounter Summary ---
Author Organization [facility] Address [id number] [address] [place] [address] Care Team Providers Care Lidar Analyst Name Role Phone Lizandro Harrison DO Primary Care Provider + [phone] Encounter Details Date Type Department Care Team (Late st Contact Info) Description 06/17/2023 Orders Only [facility] - Family Medicine [address] [place] [phone] Lizandro Harrison DO [address] [place] [address] Social History Tobacco Use Types Packs/Day Years [...] on file documented as of this encounter Procedures Procedure Name Priority Date/Time Associated Diagnosis Comments US PELVIC WITH TRANSVAGINAL Routine 06/13/2023 10:19 AM EDT documented in this encounter Results * Ultrasound pelvic with transvaginal (06/13/2023 10:19 AM EDT) Anatomical Region Laterality Modality Body, Pelvis Ultrasound us Scanning Provider External IMG US ORDERABLES Fin al Result documented in this encounter Visit Diagnoses Not on filedocumented in this encounter Care Teams Lidar Analyst Relationship Specialty Start Date End Date Lizandro Harrison DO [address] [facility], [place] [address] PCP - General Family Medicine 02/10/17 documented as of this encounter
--- OUTSIDE RECORDS SUMMARY | 2025-07-31 13:01 | XMS_ITS | Encounter Summary ---
Author Organization [employer] Address [id number] [address] [place] [address] Care Team Providers Care School Vocational Educator Name Role Phone Lizandro Harrison Primary Care Provider + [phone] Encounter Details Date Type Department Care Team (Late st Contact Info) Description 08/11/2022 [facility] [address] [place] [phone] Vanna Pina CMA Social History Tobacco Use Types Packs/Day [...] on file Sexual Orientation Not on file COVID-19 Exposure Response Date Recorded In the last month, have you been in contact with someone who was confirmed or suspected to have Coronavirus / COVID-19? No / Unsure 08/01/2022 9:21 AM EDT documented as of this encounter Miscellaneous Notes * Telephone Encounter - Vanna Pina CMA - 08/11/2022 8:37 AM EDT Patient called and should of had you put her on something for depression because she is having trouble now with coping with every day. She also said the weight loss medicine she was prescribed is no longer on shelf. Can you send something in for the depression. * Telephone Encounter - PRADEEP Merritt - 08/11/2022 8:37 AM EDT I sent sertraline in for depression, let's try qsymia for weight loss, I need to titrate the dose up over 6 weeks, and then see her back in the office in 3 months for recheck * Telephone Encounter - Vanna Pina CMA - 08/11/2022 8:37 AM EDT Called Patient left message via Voicemail documented in this encounter Plan of Treatment Not on file documented as of this encounter Visit Diagnoses Not on filedocumented in this encounter Care Teams School Vocational Educator Relationship Specialty Start Date End Date Lizandro Harrison DO [address] [place] [address] PCP - General Family Medicine 02/10/17 documented as of this encounter
--- OUTSIDE RECORDS SUMMARY | 2025-07-31 13:02 | XMS_ITS | Encounter Summary ---
Author Organization [facility] Address [address] [place] [address] Care Team Providers Care Ornamental Metal Fabricator Apprentice Name Role Phone Lizandro Harrison MD Primary Care Provider [phone] Encounter Details Date Type Department Care Team (Late Contact Info) Description 08/22/2023 Clinisync Result Encounter [facility] External Department Unsolicited Abby Villalobos, DO [address] [place] [id number] Social History Tobacco Use Types Packs/Day Years Used Date Smoking Tobacco: Never Assessed Comments Unknown Sex and Gender Information Value Date Recorded Sex Assigned at Not on file Legal Sex Female 11:06 PM EDT Gender Identity Not on file Sexual Orientation Not on file documented as of this encounter Plan of Treatment Upcoming Encounters Date Type Department Care Team ([facility] Contact Info) Description 08/07/2026 10:00 AM EDT Procedure Visit [facility] [address] [facility] [place] [id number] Abby Villalobos, DO [address] [place] [address] documented as of this encounter Procedures Procedure Name Priority Date/Time Associated Diagnosis Comments US PELVIS W/ TRANSVAGINAL 08/22/2023 12:36 PM EST documented in this encounter Results * US PELVIS W/ TRANSVAGINAL (08/22/2023 12:36 PM EST) Anatomical Region Laterality Modality Other 08/22/2023 12:3 6 PM EST Narrative 08/22/2023 12:36 [place] [address] Ultrasound Report Signed Patient: ANNAMARIE LANIER MR#: [id number] : 1985 Acct:[id number] Age/Sex: 38 / F ADM Date: 08/22/23 Loc: US Attending Dr: Abby Villalobos D.O. Ordering Physician: Abby Villalobos D.O. Date of Service: 08/22/23 Procedure(s): US pelvis w/ transvaginal Accession Number(s): [id number] cc: LIZANDRO HARRISON ; Abby Villalobos D.O. [address] [address] Patient Name: ANNAMARIE LANIER MRN: [facility]:[id number] date: 1985 Sex: F Assigned Patient Location: US Current Patient Location: US Accession/Order Number: [id number] Exam Date: 08/22/2023 10:00 Report Date: 08/22/2023 12:36 At the request of: ABBY VILLALOBOS Procedure: US pelvis w/ transvaginal EXAM: Pelvic ultrasound HISTORY: . LEFT OVARIAN CYST N 83.202 . COMPARISON: 06/13/2023 TECHNIQUE: Transabdominal and transvaginal scanning was performed FINDINGS: The pelvis demonstrates uterus to be anteverted and measures 7 x 4 x 3.2 cm. Endometrial complex measures 5 mm. Right ovary measures 1.5 x 2 x 1.4 cm. Color-flow is noted. Resistive indexes 0.5. No masses are noted. Left ovary measures 4.2 x 2.7 x 2.2 cm. Color-flow is noted. Resistive indexes 0.3. Within the left ovary is a 2.5 x 1.5 cm avascular complex cystic area. No fluid is noted in the cul-de-sac. US/US pelvis w/ transvaginal IMPRESSION: 1. Normal-appearing anteverted uterus with a normal endometrial complex. 2. Normal right ovary. 3. Within the left ovary is a 2.5 x 1.5 cm avascular complex cystic structure. When compared to the previous exam the complex cystic lesion is smaller. On the previous exam this measured 2.9 x 2.3 cm. Electronically authenticated by: FLY MERIDA Date: 08/22/2023 12:36 Dictated By: Fly Merida M.D. Signed By: 08/22/23 1239 DD/ 1236 TD/TT: Metallurgy Laboratory Technician: Procedure Note Radiology, Radiologist, MD - 08/22/2023 [place] [address] Ultrasound Report Signed Patient: ANNAMARIE LANIER LMR#: [id number] : 1985Acct:[id number] Age/Sex: 38 / FADM Date: 08/22/23 Loc: US Attending Dr: Abby Villalobos D.O. Ordering Physician: Abby Villalobos D.O. Date of Service: 08/22/23 Procedure(s): US pelvis w/ transvaginal Accession Number(s): [id number] cc: LIZANDRO HARRISON Corey D.O. The [place] [address] Patient Name: ANNAMARIE LANIER MRN: [id number] date: 1985 Sex: F Assigned Patient Location: US Current Patient Location: US Accession/Order Number: [id number] Exam Date: 08/22/2023 10:00 Report Date: 08/22/2023 12:36 At the request of: ABBY VILLALOBOS Procedure: US pelvis w/ transvaginal EXAM: Pelvic ultrasound HISTORY: . LEFT OVARIAN CYST N 83.202 . COMPARISON: 06/13/2023 TECHNIQUE: Transabdominal and transvaginal scanning was performed FINDINGS: The pelvis demonstrates uterus to be anteverted and measures 7 x4 x 3.2 cm. Endometrial complex measures 5 mm. Right ovary measures 1.5 x 2 x 1.4 cm. Color-flow is noted. Resistiveindexes 0.5. No masses are noted. Left ovary measures 4.2 x 2.7 x 2.2 cm. Color-flow is noted. Resistiveindexes 0.3. Within the left ovary is a 2.5 x 1.5 cm avascular complex cysticarea. No fluid is noted in the cul-de-sac. US/US pelvis w/ transvaginal IMPRESSION: 1. Normal-appearing anteverted uterus with a normal endometrial complex. 2. Normal right ovary. 3. Within the left ovary is a 2.5 x 1.5 cm avascular complex cysticstructure. When compared to the previous exam the complex cystic lesion is smaller.On the previous exam this measured 2.9 x 2.3 cm. Electronically authenticated by: FLY MERIDA Date: 08/22/2023 12:36 Dictated By: Fly Merida M.D. Signed By:08/22/23 1239 DD/ 1236 TD/TT: Metallurgy Laboratory Technician: us Abby Griselda DO [facility] Final Result documented in this encounter Visit Diagnoses Not on filedocumented in this encounter Care Teams Ornamental Metal Fabricator Apprentice Relationship Specialty Start Date End Date Lizandro Harrison MD PCP - General 05/29/23 documented as of this encounter
--- OUTSIDE RECORDS SUMMARY | 2025-07-31 13:02 | XMS_ITS | Encounter Summary ---
Author Organization [facility] Address [address] [facility] [place] [address] Care Team Providers Care Trim Machine Operator Name Role Phone Lizandro Harrison MD Primary Care Provider [phone] Reason for Visit * Reason Comments Med Refill Encounter Details Date Type Department Care Team ([facility] st Contact Info) Description 05/21/2024 Refill [facility] [address] [facility] [place] [address] Graham Villalobos DO [address] [facility] [address] [facility] [address] [place], [place] [id number] Social History Tobacco Use Types Packs/Day Years [...] on file documented as of this encounter Miscellaneous Notes * Telephone Encounter - Brigitte BlanchardMONIKA - 05/23/2024 7:31 AM EDT Medication refused due to failing protocol. Requested Prescriptions Pending Prescriptions Disp Refills ibuprofen 800 MG tablet [Pharmacy Med Name: IBUPROFEN 800 MG TABLET] 40 tablet Sig: take 1 tablet by mouth every 8 hours if needed for mild pain NSAIDs Protocol Failed - 05/21/2024 11:48 PM Failed - Normal serum potassium in past 9 months POTASSIUM, SERUM Date Value Ref Range Status 10/23/2023 4.2 3.5 - 5.0 mmol/L Final Failed - HGB greater than 10 or HCT greater than 30 in past 9 months Passed - Normal serum creatinine in past 9 months Creatinine Date Value Ref Range Status 10/23/2023 0.63 0.40 - 1.00 mg/dL Final Comment: METHOD TRACEABLE TO IDMS STANDARD Passed - AST less than 55 or ALT less than 90 in past 9 months AST Date Value Ref Range Status 10/23/2023 18 0 - 41 U/L Final ALT (SGPT) Date Value Ref Range Status 10/23/2023 16 0 - 31 U/L Final Passed - Visit with relevant provider in past 9 months or upcoming 90 days Recent Visits No visits were found meeting these conditions. Showing recent visits within past 270 days and meeting all other requirements Future Appointments Date Type Provider Dept 07/26/24 Appointment DO Landry Atkinson [facility] Ob Showing future appointments within next 90 days and meeting all other requirements Passed - No active on record Passed - No test in the past 12 months or most recent test was negative Passed - Medication not refilled in past 45 days (1.5 months) No matching medication orders between 04/08/2024 7:31 AM and 05/23/2024 7:31 AM documented in this encounter Plan of Treatment Upcoming Encounters Date Type Department Care Team (Late st Contact Info) Description 08/07/2026 10:00 AM EDT Procedure Visit [facility]DRY Mirza OBG[facility] [address] [facility] [place] [address] Graham Villalobos DO [address] [place] [address] documented as of this encounter Visit Diagnoses Not on filedocumented in this encounter Care Teams Trim Machine Operator Relationship Specialty Start Date End Date Lizandro Harrison MD PCP - General 05/29/23 documented as of this encounter
--- OUTSIDE RECORDS SUMMARY | 2025-07-31 13:02 | XMS_ITS | Clinical Summary ---
Author Organization [facility] Address [id number] [address] [place] [address] Care Team Providers Care Outdoor Advertising Leasing Agent Name Role Phone Lizandro Harrison Primary Care Provider [phone] Allergies No known active allergies Medications cetirizine (ZyrTEC) 10 MG chewable tablet Chew 1 tablet (10 mg total) and swallow in the morning. Active metFORMIN XR (GLUCOPHAGE XR) 500 mg 24 hr tablet Active sertraline (ZOLOFT) 50 mg tablet Take 1 tablet (50 mg total) by mouth in the morning. 90 tablet 1 5 Active LO LOESTRIN FE 1 mg-10 mcg (24)/10 mcg (2) tablet Take 1 tablet by mouth. Active albuterol-budes onide (AIRSUPRA) 90-80 mcg/actuation HFA aerosol inhaler Inhale 2 puffs every 4 (four) hours as needed (SOB, wheeze). 10.7 g 1 5 Active phentermine 15 MG capsuleIndicati ons:Morbid obesity (CMS-HCC) Take 1 capsule (15 mg total) by mouth every morning. 30 capsule 5 Active omeprazole (PriLOSEC) 40 mg capsule TAKE 1 CAPSULE BY MOUTH EVERY DAY IN THE MORNING BEFORE BREAKFAST 90 capsule 5 Active fluticasone propionate (FLONASE) 50 mcg/actuation nasal spray SPRAY 2 SPRAYS INTO EACH NOSTRIL IN THE MORNING 48 mL 1 5 Active Active Problems Problem Noted Date Diagnosed Date Morbid obesity 05/12/2025 Chronic pain of right thumb 04/05/2025 Right wrist drop 04/05/2025 Anemia 10/23/2023 Ovarian cyst, left 08/22/2023 Pelvic pain 06/13/2023 Intestinal metaplasia of gastric mucosa 02/24/20 23 Persistent depressive disorder 08/11/2022 Foreign body in forearm 07/02/2022 Allergic rhinitis 07/02/2022 Asthma 07/02/2022 Carpal tunnel syndrome 07/02/2022 History of gestational diabetes mellitus 022 Other thrombocytosis 08/02/2021 Leukocytosis 08/02/2021 Benign paroxysmal positional vertigo 02/07/2021 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 Iron deficiency anemia 11/04/2020 Vertigo 02/09/2019 Gastritis 10/12/2005 Encounters Date Type Department Care Team Description 06/27/2025 Refill [facility] - Family Medicine [address] [place] [address] Lizandro Harrison, DO 05/13/2025 [facility] [address] [place] [address] Lizandro Harrison, 05/12/2025 9:20 AM EDT Office Visit [facility] - Family Medicine [address] [place] [address] Lizandro Harrison, Morbid obesity (CMS-HCC) (Primary Dx); Chronic gastritis without bleeding, unspecified gastritis type 05/12/2025 Travel 05/05/2025 Results Follow-Up [facility] - Family Medicine [address] [place] [address] Liznadro Harrison, X-ray wrist right minimum 3 views, X-ray finger thumb right minimum 2 views 05/01/2025 5:30 PM EDT - 05/01/2025 11:59 PM EDT Hospital Encounter [facility] - Radiology [address] [place] [phone] Lizandro Harrison, DO Chronic pain of right thumb Discharge Disposition: Home 05/01/2025 5:25 PM EDT - 05/01/2025 5:29 PM EDT Hospital Encounter [facility] - Radiology [address] [place] [address] SelvinseraLizandro martinez, DO Right wrist pain Discharge Disposition: Home 05/01/2025 Travel from Last 3 Months Immunizations Immunization Administration Dates Next Due Tdap 09/10/2020,01/22/2009 Family History Medical History Relation Name Comments Diabetes Maternal Grandmother Bone cancer Paternal Grandfather Cancer Paternal Grandfather Stomach cancer Paternal Grandfather COPD Paternal Grandmother Diabetes Paternal Grandmother Hodgkin's lymphoma Paternal Grandmother Relation Name Status Comments Father Alive Maternal Grandfather Maternal Grandmother Mother Alive Paternal Grandfather Paternal Grandmother Social History Tobacco Use Types Packs/Day Years Used Date Smoking Tobacco: Never Smokeless Tobacco: Never Tobacco Cessation:Counseling Given: Not Answered Alcohol Use Standard Drinks/Week Comments Yes 0 (1 standard drink = 0.6 oz pur e alcohol) rare [employer] Answer Date Recorded In the past 12 months has [employer] electric, gas, oil, or water company threatened to shut off services in your home? No 04/05/2025 Social Connection and Isolation Panel Answer Date Recorded In a typical week, how many times do you talk on the phone with family, friends, or neighbors? More than three times a week 04/05/2025 How often do you get togethe r with friends or relatives? Twice a week 04/05/2025 How often do you attend [facility] or mu-ism services? Never 04/05/2025 Do you belong to any clubs o r organizations such as confucianism groups, unions, fraternal or athletic groups, or school groups? No 04/05/2025 How often do you attend meet ings of the clubs or organizations you belong to? Never 04/05/2025 Are you , , di vorced, , never , or living with a partner? 04/05/2025 AUDIT-C Answer Date Recorded Q1: How often do you have a drink containing alc ohol? Monthly or less 04/05/2025 Q2: How many drinks containi ng alcohol do you have on a typical day when you are drinking? 1 or 2 04/05/2025 Q3: How often do you have si x or more drinks on one occasion? Never 04/05/2025 Overall Financial Resource Strain (CARDIA) Answe r Date Recorded How hard is it for you to pa y for the very basics like food, housing, medical care, and heating? Not very hard 12/08/2024 PHQ-2 Answer Date Recorded Total Score 0 05/12/2025 [facility] - Occupational Stress Questionnaire Answer Date Recorded Do you feel stress - tense, restless, nervous, or anxious, or unable to sleep at night because your mind is troubled all the time - these days? Only a little 04/05/2025 Exercise Vital Sign Answer Date Recorde d On average, how many days pe r week do you engage in moderate to strenuous exercise (like a brisk walk)? 0 days 04/05/2025 On average, how many minutes do you engage in exercise at this level? 0 min 04/05/2025 PRAPARE - Transportation Answer Date Re corded In the past 12 months, has l ack of transportation kept you from medical appointments or from getting medications? No 11/13 In the past 12 months, has l ack of transportation kept you from meetings, work, or from getting things needed for daily living? No 12/08/2024 Housing Instability Answer Date Recorde d Are you worried or concerned that in the next two months you may not have stable housing that you own, rent or stay in as a part of a household? No 12/08/2024 Childcare Answer Date Recorded Do problems getting child ca re make it difficult for you to work or study? No 04/05/2025 Employment Answer Date Recorded Do you need help finding a l al career center and/or a training program? No 04/05/2025 Hunger Screening Answer Date Recorded Within the past 12 months we worried whether our food would run out before we got money to buy more. Never True 05/12/2025 Within the past 12 months th e food we bought just didn't last and we didn't have money to get more. Never True 05/12/2025 Purpose - Life Answer Date Recorded I have a purpose and direction in my life. Agree 04/05/2025 Comments No Sex and Gender Information Value Date Recorded Sex Assigned at Not on file Legal Sex Female 11:34 AM EDT Gender Identity Not on file Sexual Orientation Not on file Last Filed Vital Signs Vital Sign Reading Time Taken Comments Blood Pressure 124/80 05/12/2025 9:20 AM EDT Pulse 94 05/12/2025 9:20 AM EDT Temperature 36.5 C (97.7 F) 05/12/2025 9:20 AM EDT Respiratory Rate 18 05/12/2025 9:20 AM EDT Oxygen Saturation 98% 05/12/2025 9:20 AM EDT Inhaled Oxygen Concentration - - Weight 93.9 kg (207 lb) 05/12/2025 9:20 AM EDT Height 147.3 cm (4' 9.99 ) 05/12/2025 9:20 AM ED T Body Mass Index 43.27 05/12/2025 9:20 AM EDT Plan of Treatment Health Maintenance Due Date Last Done Comments Pap Smear 07/10/2025 07/10/2022 Adult BMI Follow Up Plan 05/12/2026 05/12/2025 Adult BMI Screening 05/12/2026 05/12/2025 Depression Screening 05/12/2026 05/12/2025 Tobacco Screening 05/12/2026 05/12/2025 DTaP,Tdap and Td Vaccines (3 - Td or Tdap) 09/10/2030 09/10/2020, 01/22/2009 COVID-19 Vaccine Discontinued 12/06/2021, 11/15/2021 Influenza Vaccine Discontinued Medical Devices Not on file Procedures Procedure Name Priority Date/Time Associated Diagnosis Comments XR FINGER THUMB RT MIN 2 VWS Routine 05/01/2025 5:41 PM EDT Chronic pain of right thumb XR WRIST RT MIN 3 VWS Routine 05/01/2025 5:40 PM EDT Right wrist pain from Last 3 Months Results * X-ray finger thumb right minimum 2 views (05/01/2025 5:41 PM EDT) Anatomical Region Laterality Modality Upper Extremities, MSK, Fingers Right Computed Radiography 05/04/2025 8:47 PM EDT Narrative 05/04/2025 8:48 PM EDT Exam: 3 views of the right hand [...] Jo Merchant MD on 05/04/2025 8:48 PM Procedure Note Mary Jo Merchant MD - 05/04/2025 Exam: 3 views of the right hand dated 05/01/2025. HISTORY: Right thumb and right wrist pain from repetitive movements atwork. COMPARISON: None. IMPRESSION: Moderate narrowing of the first metacarpophalangeal joint space with earlyspur formation on both sides of the joint. Early degenerative changes of the interphalangeal joint of the rightthumb. No acute osseous abnormalities in the right hand. Finalized by Mary Jo Merchant MD on 05/04/2025 8:48 PM us Lizandro Harrison DO IM DIAGNOSTIC IMAGING ORDER DICK Final Result * X-ray wrist right minimum 3 views (05/01/2025 5:40 PM EDT) Anatomical Region Laterality Modality MSK, Upper Extremities, Wrist Right Co mputed Radiography 05/05/2025 5:23 AM EDT Narrative 05/05/2025 5:23 AM EDT XR WRIST RT MIN 3 VWS HISTORY: Right wrist pain. COMPARISON: none IMPRESSION: No acute fracture or dislocation. Mild degenerative changes first CMC. Finalized by Taran Henao MD on 05/05/2025 5:23 AM Procedure Note Taran Henao MD - 05/05/2025 XR WRIST RT MIN 3 VWS HISTORY: Right wrist pain. COMPARISON: none IMPRESSION: No acute fracture or dislocation. Mild degenerative changes first CMC. Finalized by Taran Henao MD on 05/05/2025 5:23 AM Lizandro Harrison DO IMG DIAGNOSTIC IMAGING ORDER DICK Final Result from Last 3 Months Insurance [employer] Care Teams Outdoor Advertising Leasing Agent Relationship Specialty Start Date End Date Lizandro Harrison DO [address] [facility] [place] [address] PCP - General Family Medicine 02/10/17
[2025-08-03 14:09] LABS: Age Gdln ACOG Testing Note (.); IGP, Aptima HPV, rfx 16/18,45 Note (.)
== END 2025-07-31 12:57 | disposition home or self-care (01) ==
LOC: LAB 12:56
PROVIDERS: PCP Family Medicine; Visit Provider Obstetrics & Gynecology
DX: Z01.419 Encounter for gynecological examination (general) (routine) without abnormal findings (principal)
CPT/HCPCS: 87624; 88175